=== PATIENT | male | born 1990 | race American Indian/Alaskan Native ===

== ENCOUNTER 2016-11-23 11:46 | Emergency (ER) | payer OTHER ==
--- NOTE | 2016-11-23 12:48 | XRay Report ---
ROUTINE CHEST, TWO VIEWS: HISTORY: Hypertension. The trachea, heart, mediastinal contour, lung park and bony thorax are unremarkable. IMPRESSION: Unremarkable chest x-ray.
[2016-11-23 13:00] LABS: Basophils % (Auto) 0.5 % (0.0-1.8); Eosinophils % (Auto) 0.8 % (0.0-4.3); Hematocrit 46.2 % (35.5-45.6); Hemoglobin 15.7 gm/dl (11.8-15.2); Mean Corpuscular HGB Conc 34 % (32-34); Mean Corpuscular Hemoglobin 29 pg (28-32); Mean Corpuscular Volume 85 fl (84-94); Platelet Count 262 K/mm3 (140-440); Red Blood Count 5.43 M/mm3 (3.65-5.03); White Blood Count 7.4 K/mm3 (4.5-11.0)
[2016-11-23 13:05] LABS: Anion Gap 16 mmol/L; BUN/Creatinine Ratio 8.75; Blood Urea Nitrogen 7 mg/dL (9-20); Calcium 9.1 mg/dL (8.4-10.2); Carbon Dioxide 27 mmol/L (22-30); Chloride 96.8 mmol/L (98-107); Glucose 93 mg/dL (75-100); Potassium 3.4 mmol/L (3.6-5.0); Sodium 136 mmol/L (137-145)
[2016-11-23] MEDS ORDERED: APRESOLINE IV ONE ×2 (14:43→15:41)
--- NOTE | 2016-11-23 14:49 | Emergency Department Report ---
ED General Adult HPI - General Chief complaint: Eye Problems Stated complaint: RIGHT EYE PAIN Time Seen by Provider: 11/23/16 14:27 Source: patient Mode of arrival: Ambulatory Limitations: No Limitations - History of Present Illness Initial comments: Patient presents to the emergency department because of redness and itching of his right eye. He states he "hasn't been to a doctor in a minute". He presented with incidental and severe hypertension. He denies any dyspnea or chest pain. He also denies dyspnea on exertion or any orthopnea. He said no no headache and no neurological change. He's had no change in his vision. -: days(s) Location: right (conjunctiva) Radiation: non-radiation Quality: burning Consistency: intermittent Worsens with: none Associated Symptoms: denies other symptoms - Related Data Previous Rx's Medication Instructions Recorded Last Taken Type Lisinopril/Hydrochlorothiazide 1 each PO QDAY #30 tablet 11/23/16 Unknown Rx [Zestoretic 20-12.5 mg] Sulfacetamide Sod 10% [Bleph 10] 2 drops OD 4XD #1 bottle 11/23/16 Unknown Rx hydrALAZINE [Apresoline TAB] 25 mg PO BID #60 tab 11/23/16 Unknown Rx Allergies Allergy/AdvReac Type Severity Reaction Status Date / Time No Known Allergies Allergy Unverified 11/23/16 12:01 ED Review of Systems ROS: Stated complaint: RIGHT EYE PAIN Other details as noted in HPI Constitutional: denies: chills, fever Eyes: as per HPI, other (right eye redness). denies: eye pain, eye discharge, vision change ENT: denies: ear pain, throat pain Respiratory: denies: cough, shortness of breath, wheezing Cardiovascular: denies: chest pain, palpitations Endocrine: no symptoms reported Gastrointestinal: denies: abdominal pain, nausea, diarrhea Genitourinary: denies: urgency, dysuria Musculoskeletal: denies: back pain, joint swelling, arthralgia Skin: denies: rash, lesions Neurological: denies: headache, weakness, paresthesias Psychiatric: denies: anxiety, depression Hematological/Lymphatic: denies: easy bleeding, easy bruising ED Past Medical Hx - Past Medical History Hx Hypertension: No - Surgical History Past Surgical History?: No - Social History Smoking Status: Never Smoker Substance Use Type: None - Medications Home Medications: Home Medications Medication Instructions Recorded Confirmed Last Taken Type Lisinopril/Hydrochlorothiazide 1 each PO QDAY #30 tablet 11/23/16 Unknown Rx [Zestoretic 20-12.5 mg] Sulfacetamide Sod 10% [Bleph 10] 2 drops OD 4XD #1 bottle 11/23/16 Unknown Rx hydrALAZINE [Apresoline TAB] 25 mg PO BID #60 tab 11/23/16 Unknown Rx ED Physical Exam - General Limitations: No Limitations General appearance: alert, in no apparent distress - Head Head exam: Present: atraumatic, normocephalic - Eye Eye exam: Present: normal appearance, PERRL, EOMI, scleral icterus, conjunctival injection - ENT ENT exam: Present: normal exam, mucous membranes moist - Neck Neck exam: Present: normal inspection - Respiratory Respiratory exam: Present: normal lung sounds bilaterally. Absent: respiratory distress - Cardiovascular Cardiovascular Exam: Present: regular rate, normal rhythm. Absent: systolic murmur, diastolic murmur, rubs, gallop - GI/Abdominal GI/Abdominal exam: Present: soft, normal bowel sounds. Absent: distended, tenderness, guarding, rebound, rigid - Rectal Rectal exam: Present: deferred - Extremities Exam Extremities exam: Present: normal inspection - Back Exam Back exam: Present: normal inspection - Neurological Exam Neurological exam: Present: alert, oriented X3, CN II-XII intact. Absent: motor sensory deficit - Psychiatric Psychiatric exam: Present: normal affect, normal mood - Skin Skin exam: Present: warm, dry, intact, normal color. Absent: rash ED Course Vital Signs 11/23/16 11/23/16 11/23/16 12:01 14:42 15:07 Temperature 98.7 F 98.4 F Pulse Rate 86 63 63 Respiratory 18 20 Rate Blood Pressure 192/140 200/138 Blood Pressure 194/137 [Left] O2 Sat by Pulse 100 100 Oximetry ED Medical Decision Making - Lab Data Result diagrams: 11/23/16 12:34 11/23/16 12:34 Laboratory Results - last 24 hr 11/23/16 11/23/16 12:34 12:34 WBC 7.4 RBC 5.43 H Hgb 15.7 H Hct 46.2 H MCV 85 MCH 29 MCHC 34 RDW 13.0 L Plt Count 262 Lymph % (Auto) 23.1 Hood % (Auto) 7.5 H Eos % (Auto) 0.8 Baso % (Auto) 0.5 Lymph # 1.7 Hood # 0.6 Eos # 0.1 Baso # 0.0 Seg Neutrophils % 68.1 Seg Neutrophils # 5.1 Sodium 136 L Potassium 3.4 L Chloride 96.8 L Carbon Dioxide 27 Anion Gap 16 BUN 7 L Creatinine 0.8 Estimated GFR > 60 BUN/Creatinine Ratio 8.75 Glucose 93 Calcium 9.1 - EKG Data -: EKG Interpreted by Me EKG shows normal: sinus rhythm, intervals, QRS complexes, ST-T waves Rate: normal - EKG Data Interpretation: other (Left axis deviation and voltage criteria for LVH) Critical care attestation.: If time is entered above; I have spent that time in minutes in the direct care of this critically ill patient, excluding procedure time. ED Disposition Clinical Impression: Uncontrolled hypertension Conjunctivitis, right eye Qualifiers: Conjunctivitis type: unspecified Qualified Code(s): H10.9 - Unspecified conjunctivitis Disposition: DISCHARGED TO HOME OR SELFCARE Is pt being admited?: No Does the pt Need Aspirin: No Condition: Stable Instructions: Hypertension (ED), Conjunctivitis (ED) Additional Instructions: Management of your high blood pressure is essential. Rx as directed. Follow- up is critical. Prescription given for your pinkeye as well. Return any acute change or problem. Prescriptions: hydrALAZINE [Apresoline TAB] 25 mg PO BID #60 tab Lisinopril/Hydrochlorothiazide [Zestoretic 20-12.5 mg] 1 each PO QDAY #30 tablet Sulfacetamide Sod 10% [Bleph 10] 2 drops OD 4XD #1 bottle Referrals: PRIMARY CARE, [Primary Care Provider] - 3-5 Days Time of Disposition: 16:00
[2016-11-23] MEDS ORDERED: K-DUR PO ONE (15:33)
[2016-11-23] MEDS ORDERED: NORMODYNE IV ONE ×2 (16:40→18:52)
[2016-11-23] MEDS ORDERED: ZOFRAN IV ONE ×2 (17:15→19:36)
--- NOTE | 2016-11-23 19:38 | Emergency Department Report ---
Blank Doc - Documentation Documentation: I was asked to see this patient as the patient continued to have hypertension despite the IV blood pressure medication given. The patient is originally here for conjunctivitis post found to have hypertensive urgency. Patient was given another dose of blood pressure medication that did not appear to provide immediate relief. The patient began having nausea and vomiting. He was given some IV Zofran. We continued to monitor him in the emergency department. The blood pressure has started to improve with the patient still continues to complain of nausea and vomiting and now is complaining of a headache. For this reason a CT of the head without contrast will be ordered due to his significant hypertension of issues prior to this. He has been given more Zofran and we will continue to monitor him in the emergency department.
--- NOTE | 2016-11-23 20:23 | Cat Scan Report ---
FINAL REPORT PROCEDURE: CT HEAD/BRAIN WO CON TECHNIQUE: Computerized tomography of the head was performed without contrast material. HISTORY: FLOYD with hypertension COMPARISON: No prior studies are available for comparison. FINDINGS: No CT evidence of intracranial mass, hemorrhage, acute territorial infarction, or hydrocephalus. The intracranial arteries are symmetric in density. Calvarium is intact. There is bilateral ethmoid sinus mucosal thickening. IMPRESSION: Bilateral ethmoid sinus mucosal thickening. No CT evidence of acute intracranial abnormality
[2016-11-23] MEDS ORDERED: CATAPRES PO ONE (20:38)
[2016-11-23] MEDS ORDERED: BENADRYL IV ONE (20:38)
[2016-11-23] MEDS ORDERED: REGLAN IV ONE (20:38)
--- NOTE | 2016-11-23 22:14 | Emergency Department Report ---
Blank Doc - Documentation Documentation: Patient signout to me by Dr. Galvez since patient attained to have uncontrolled hypertension despite IV medication. Patient complained of headache which is now 3/10 in intensity did not require any additional pain medications. Nausea and vomiting improved with treatment prior to my evaluation. I treated patient with clonidine 0.1 mg which he tolerated had improvement in his blood pressure. BP 140/96. I will discharge patient home with the medications prescribed by Dr. Stone which includes hydralazine, lisinopril/hydrochlorothiazide, and antibiotics eyedrops. CT head showed ethmoid sinus thickening. Patient will be discharged to follow-up with the PMD as outpatient
[2016-11-23 22:31] VITALS: BP 141/91
== END 2016-11-23 22:30 | disposition home or self-care (01) ==
LOC: ED 11:46
DX: H10.9 Unspecified conjunctivitis (principal); R03.0 Elevated blood-pressure reading, without diagnosis of hypertension
CPT/HCPCS: 36415; 70450; 71020; 80048; 85025; 93005; 93010; 96374; 96375; 96376; 99284; J0360; J2405; J1200; J2765

== ENCOUNTER 2017-07-04 19:10 | Inpatient (IN) | payer OTHER ==
[2017-07-04] MEDS ORDERED: CATAPRES ONE (19:54)
[2017-07-04] MEDS ORDERED: CATAPRES PO ONE (19:57)
[2017-07-04] MEDS ORDERED: MORPHINE IV ONE (20:53)
[2017-07-04] MEDS ORDERED: K-DUR PO ONE (20:54)
[2017-07-04] MEDS ORDERED: ZOFRAN IV ONE (20:54)
[2017-07-04 20:59] LABS: Basophils % (Auto) 0.9 % (0.0-1.8); Eosinophils % (Auto) 0.9 % (0.0-4.3); Hemoglobin 13.6 gm/dl (11.8-15.2); Mean Corpuscular HGB Conc 36 % (32-34); Mean Corpuscular Hemoglobin 30 pg (28-32); Mean Corpuscular Volume 83 fl (84-94); Platelet Count 310 K/mm3 (140-440); Red Blood Count 4.57 M/mm3 (3.65-5.03); Red Cell Distribution Width 13.3 % (13.2-15.2); White Blood Count 4.4 K/mm3 (4.5-11.0)
--- NOTE | 2017-07-04 20:59 | Emergency Department Report ---
ED Chest Pain HPI - General Chief Complaint: Chest Pain Stated Complaint: CHEST PAIN Time Seen by Provider: 07/04/17 20:11 Source: patient Mode of arrival: Ambulatory Limitations: No Limitations - History of Present Illness Initial Comments: 26-year-old male with past medical history hypertension presents to the hospital with chest pain and headaches intermittent times at least one month. Patient's chest pain is in the center of his chest, intermittent tightness rated 8/10 in intensity. Currently no chest pain reported. No aggravating or alleviating symptoms. Denies associated symptoms with pain including shortness of breath, nausea, vomiting, diaphoresis, Tenderness, or edema. Patient complains of posterior headache radiating to the neck. This pain is also intermittent. Currently the process in intensity. Denies associated symptoms including nausea, vomiting, blurred vision, focal weakness, or focal numbness. Patient was here in November for eye-related complaints and found to be hypertensive at that time. Patient was prescribed Lisinopril/ hydrochlorothiazide 20-12.5 mg and hydralazine 25 mg after receiving several IV medications in the ED for blood pressure control. Patient never filled his medications or followed up with the primary care doctor for further blood pressure management. Positive family history of hypertension reported with unknown cardiac history. Patient does not smoke cigarettes. Severity scale (0 -10): 8 - Related Data Home Medications Medication Instructions Recorded Confirmed Last Taken No Known Home Medications [No 07/04/17 07/04/17 Unknown Reported Home Medications] Allergies Allergy/AdvReac Type Severity Reaction Status Date / Time No Known Allergies Allergy Unverified 11/23/16 12:01 Heart Score - HEART Score History: Slightly suspicious EKG: Non-specific Age: < 45 Risk factors: 1-2 risk factors Troponin: < normal limit HEART Score: 2 ED Review of Systems ROS: Stated complaint: CHEST PAIN Other details as noted in HPI Comment: All other systems reviewed and negative Other: Constitutional: No fevers chills or weight loss Eyes: No eye pain visual changes or discharge ENT: No ear pain or throat pain Neck: Denies pain Respiratory: Denies cough wheezing shortness of breath at rest shortness of breath or exertion, orthopnea or PND Cardiovascular: Denies chest pain, palpitations, syncope Endocrine: Denies excessive sweating, intolerance to cold, increased thirst GI: Denies abdominal pain, nausea, vomiting, diarrhea, constipation, melena hematochezia : Denies dysuria, urinary frequency, or urgency Musculoskeletal: Denies back pain, joint swelling Skin: Denies rash, lesions, erythema Neurologic: Denies headache, numbness, weakness Psychiatric: Denies suicidal ideation, hallucinations Hematological/lymphatic: Denies easy bruising, lymphadenopathy ED Past Medical Hx - Past Medical History Previous Medical History?: No Hx Hypertension: No - Surgical History Past Surgical History?: No - Social History Smoking Status: Never Smoker - Medications Home Medications: Home Medications Medication Instructions Recorded Confirmed Last Taken Type No Known Home Medications [No 07/04/17 07/04/17 Unknown History Reported Home Medications] ED Physical Exam - General Limitations: No Limitations - Other Other exam information: General: No limitations, patient is alert in no acute distress Head exam: Atraumatic, normocephalic Eyes exam: Normal appearance, pupils equal reactive to light, extraocular movements intact ENT: Moist mucous membrane, normal oropharynx Neck exam: Normal inspection, full range of motion, no meningismus nontender Respiratory exam: Clear to auscultation bilateral, no wheezes, rales, crackles Cardiovascular: Normal rate and rhythm, normal heart sounds Abdomen: Soft, nondistended, and nontender, with normal bowel sounds, no rebound, or guarding Extremity: Full range of motion normal inspection no deformity, no calf tenderness or edema Back: Normal Inspection, full range of motion, no tenderness Neurologic: Alert, oriented x3, cranial nerves intact, no motor or sensory deficit Psychiatric: normal affect, normal mood Skin: Warm, dry, intact ED Course Vital Signs 07/04/17 07/04/17 07/04/17 19:31 19:36 19:58 Temperature 98.8 F 98.8 F Pulse Rate 118 H 120 H 115 H Respiratory 18 17 Rate Blood Pressure 224/157 224/157 198/142 Blood Pressure [Left] O2 Sat by Pulse 100 99 Oximetry 07/04/17 07/04/17 20:06 20:15 Temperature 98.5 F Pulse Rate 100 H 96 H Respiratory 22 21 Rate Blood Pressure 181/128 Blood Pressure 190/137 [Left] O2 Sat by Pulse 100 97 Oximetry - Reevaluation(s) Reevaluation #1: 07/04/17 20:59 Patient received clonidine prior to my evaluation RAY score - Ray Score Age > 65: (0) No Aspirin use within the Past 7 Days: (0) No 3 or more CAD Risk Factors: (0) No 2 or more Angina events in past 24 hrs: (1) Yes Known CAD with more than 50% Stenosis: (0) No Elevated Cardiac Markers: (0) No ST Deviation Greater than 0.5mm: (0) No RAY Score: 1 ED Medical Decision Making - Lab Data Result diagrams: 07/04/17 20:37 07/04/17 20:37 Lab Results 07/04/17 07/04/17 07/04/17 Range/Units 20:37 20:37 20:37 WBC 4.4 L (4.5-11.0) K/mm3 RBC 4.57 (3.65-5.03) M/mm3 Hgb 13.6 (11.8-15.2) gm/dl Hct 38.0 (35.5-45.6) % MCV 83 L (84-94) fl MCH 30 (28-32) pg MCHC 36 H (32-34) % RDW 13.3 (13.2-15.2) % Plt Count 310 (140-440) K/mm3 Lymph % (Auto) 26.3 (13.4-35.0) % Bureau % (Auto) 9.6 H (0.0-7.3) % Eos % (Auto) 0.9 (0.0-4.3) % Baso % (Auto) 0.9 (0.0-1.8) % Lymph # 1.2 (1.2-5.4) K/mm3 Bureau # 0.4 (0.0-0.8) K/mm3 Eos # 0.0 (0.0-0.4) K/mm3 Baso # 0.0 (0.0-0.1) K/mm3 Seg Neutrophils % 62.3 (40.0-70.0) % Seg Neutrophils # 2.7 (1.8-7.7) K/mm3 Sodium 137 (137-145) mmol/L Potassium 3.1 L (3.6-5.0) mmol/L Chloride 95.4 L (98-107) mmol/L Carbon Dioxide 29 (22-30) mmol/L Anion Gap 16 mmol/L BUN 7 L (9-20) mg/dL Creatinine 1.0 (0.8-1.5) mg/dL Estimated GFR > 60 ml/min BUN/Creatinine Ratio 7 % Glucose 109 H (75-100) mg/dL Calcium 9.1 (8.4-10.2) mg/dL Troponin T < 0.010 (0.00-0.029) ng/mL Triglycerides 46 (2-149) mg/dL Cholesterol 169 (50-199) mg/dL LDL Cholesterol Direct 105 (50-130) mg/dL HDL Cholesterol 55 (40-59) mg/dL Cholesterol/HDL Ratio 3.07 % - EKG Data -: EKG Interpreted by Me (sinus 104) EKG shows normal: sinus rhythm (sinus 104), axis (QRS -40), QRS complexes ( duration 85), ST-T waves (mild anterior elevation probably secondary LVH) - EKG Data When compared to previous EKG there are: no significant change (11/2016) - Radiology Data Radiology results: report reviewed, image reviewed (cxr: naf) CT head: Probable incidental thornwaldt cyst of th enasalphrynx measuring 17mm. - Medical Decision Making Meds provided ED: Clonidine 0.2 mg, morphine 4 mg, Zofran 4 mg IV. Aspirin 325, potassium 40 mEq by mouth Blood pressure is trending downward No signs of ST elevation LA or elevated cardiac enzymes narrow mediastinum on chest x-ray. CT head without acute finding Patient be admitted to the hospital for further cardiac evaluation - Differential Diagnosis LA, unstable angina, hypertensive emergency, dissection, PE, costochondriti Critical Care Time: No Critical care attestation.: If time is entered above; I have spent that time in minutes in the direct care of this critically ill patient, excluding procedure time. ED Disposition Clinical Impression: Chest pain, Intermittent headache, Uncontrolled hypertension, Hypokalemia, Noncompliance with medication regimen Disposition: OP ADMIT IP TO THIS HOSP Is pt being admited?: Yes Does the pt Need Aspirin: Yes Condition: Stable Time of Disposition: 22:31 [facility]
[2017-07-04] MEDS ORDERED: MORPHINE ONE (21:07)
[2017-07-04 21:19] LABS: Anion Gap 16 mmol/L; BUN/Creatinine Ratio 7; Blood Urea Nitrogen 7 mg/dL (9-20); Calcium 9.1 mg/dL (8.4-10.2); Carbon Dioxide 29 mmol/L (22-30); Chloride 95.4 mmol/L (98-107); Glucose 109 mg/dL (75-100); Potassium 3.1 mmol/L (3.6-5.0); Sodium 137 mmol/L (137-145)
--- NOTE | 2017-07-04 22:06 | Cat Scan Report ---
FINAL REPORT PROCEDURE: CT HEAD/BRAIN WO CON TECHNIQUE: Computerized tomography of the head was performed without contrast material. HISTORY: headache, htn COMPARISON: No prior studies are available for comparison. FINDINGS: Skull and scalp: Normal. Paranasal sinuses: Normal. Ventricles and subarachnoid spaces: There is mild central and cortical atrophy. There is no hydrocephalus or asymmetry per. Cerebrum: No evidence of hemorrhage, acute infarction or mass . Cerebellum and brainstem: No evidence of hemorrhage, acute infarction or mass. Vasculature: Normal. Comments: Probable incidental Thornwaldt cyst of the nasopharynx measuring 17 millimeters in diameter. If indicated, direct visual inspection may be helpful. IMPRESSION: There is no acute intracranial abnormality.
[2017-07-04] MEDS ORDERED: ASPIRIN PO ONE (22:29)
--- NOTE | 2017-07-05 00:31 | History and Physical Report ---
History of Present Illness Date of examination: 07/05/17 Date of admission: 07/04/17 22:33 Chief complaint: Headache Chest tightness History of present illness: Patient is 26-year-old with history of hypertension, medical non compliance. He has not taken any of his antihypertensives medication in about 7 months. He presented a chief complaint of headache, chest pain on and off for 1 month. Headache is in the posterior part of head, throbbing kind of headache, with no radiation. Chest pain is like a tightness, middle of chest, intensity of 8 out of 10 with no radiation. Chest pain not related to meals or exertion. He denies any shortness of breath. Symptoms are getting worse therefore came to ED for evaluation. Of note patient came to Ed in november this year( 7 months ago ) was diagnosed with hypertension and given multiple prescriptions but he did not fill prescription or follow-up with a physician as recommended. In ED initial blood pressure 224/157. He was given clonidine and blood pressure improved and he is being admitted to control his blood pressure. Past History Past Medical History: hypertension Past Surgical History: No surgical history Social history: single, full code. denies: smoking, alcohol abuse Family history: diabetes, hypertension, stroke Medications and Allergies Allergies Allergy/AdvReac Type Severity Reaction Status Date / Time No Known Allergies Allergy Unverified 11/23/16 12:01 Home Medications Medication Instructions Recorded Confirmed Last Taken Type No Known Home Medications [No 07/04/17 07/04/17 Unknown History Reported Home Medications] Review of Systems All systems: negative (No fever, no cough, no abd pain. all other systems reviewed and are negative) Exam - Physical Exam Narrative exam: Gen Appearance: Not in acute distress, HEENT: normocephalic, atraumatic Neck: supple, no JVD Lungs: Clear to auscultation bilaterally, no rales, no wheezing, Heart: S1 and S2 regular, no murmurs,no rubs or gallop, Abdomen: Soft , non tender, non distended, normal bowel sounds Extremity: No edema, no clubbing or cyanosis, Neuro : Awake,alert, oriented x 3, normal speech, moves all extremities Psych: Normal mood - Constitutional Vitals: Temp Pulse Resp BP Pulse Ox 98.5 F 72 12 131/88 99 07/04/17 20:06 07/05/17 00:00 07/05/17 00:00 07/05/17 00:00 07/05/17 00:00 Results - Labs CBC & Chem 7: 07/04/17 20:37 07/05/17 08:46 Assessment and Plan Hypertensive emergency. Admit to telemetry. Initial BP was 224/157. Now much improved after Clonidine. Will start Norvasc 5mg po daily in morning Chest pain, likely due to elevated BP. Chest pain is now resolved. May do stress test before discharge. Headache due to elevated BP. CT head unremarkable. Hypokalemia. Potassium given. Repeat BMP in am Medical noncompliance. I counseled him on importance of taking his medications and to follow up with Physician on discharge. DVT prophylaxis with heparin subcut.. Full code status
[2017-07-05] MEDS ORDERED: TYLENOL PO PRN (00:45)
[2017-07-05] MEDS ORDERED: DULCOLAX PR PRN (00:45)
[2017-07-05] MEDS ORDERED: PROVENTIL IH PRN (00:45)
[2017-07-05] MEDS ORDERED: NORCO 5/325 PO PRN (00:45)
[2017-07-05] MEDS ORDERED: ZOFRAN IV PRN (00:45)
[2017-07-05] MEDS ORDERED: MILK OF MAGNESIA PO PRN (00:45)
--- NOTE | 2017-07-05 07:24 | XRay Report ---
ROUTINE CHEST, TWO VIEWS: HISTORY: Chest pain, hypertension. The trachea, heart, mediastinal contour, lung park and bony thorax are unremarkable. IMPRESSION: Unremarkable chest x-ray. No change since 11/23/16.
[2017-07-05 09:27] LABS: Anion Gap 15 mmol/L; BUN/Creatinine Ratio 8; Blood Urea Nitrogen 10 mg/dL (9-20); Calcium 9.1 mg/dL (8.4-10.2); Carbon Dioxide 29 mmol/L (22-30); Chloride 97.8 mmol/L (98-107); Glucose 93 mg/dL (75-100); Potassium 3.8 mmol/L (3.6-5.0); Sodium 138 mmol/L (137-145)
[2017-07-05] MEDS ORDERED: NORVASC PO SCH (10:00)
[2017-07-05] MEDS: ECOTRIN PO SCH (11:56)
[2017-07-05] MEDS: HEPARIN SUB-Q SCH ×2 (15:24→22:33)
[2017-07-05] MEDS ORDERED: APRESOLINE IV ONE (20:52)
[2017-07-06] MEDS ORDERED: APRESOLINE IV PRN (01:11)
[2017-07-06] MEDS: HEPARIN SUB-Q SCH ×2 (06:25→14:12)
[2017-07-06] MEDS ORDERED: LEXISCAN IV ONE ×2 (08:27→08:44)
[2017-07-06] MEDS ORDERED: NORVASC PO SCH (10:30)
[2017-07-06] MEDS ORDERED: NORMODYNE PO SCH (10:30)
[2017-07-06 10:43] VITALS: BP 164/116
--- NOTE | 2017-07-06 11:04 | Progress Note ---
Assessment and Plan Assessment and plan: Accelerated Hypertension. Increase Norvasc and add Labetalol Chest pain. Stress test pending. Strong family hx with uncle [place] in 40s Headache due to elevated BP. Resolved Hypokalemia. Replete Potassium as needed. Repeat BMP in am Medical noncompliance. Pt. counseled DVT prophylaxis with heparin. Full code status History Interval history: no new issues overnight. Hospitalist Physical - Constitutional Vitals: Temp Pulse Resp BP Pulse Ox 98.1 F 107 H 20 164/116 97 07/06/17 10:39 07/06/17 10:39 07/06/17 10:39 07/06/17 10:39 07/06/17 10:39 General appearance: Present: no acute distress, well-nourished - EENT Eyes: Present: PERRL, EOM intact ENT: hearing intact, clear oral mucosa, dentition normal - Neck Neck: Present: supple, normal ROM - Respiratory Respiratory effort: normal Respiratory: bilateral: CTA - Cardiovascular Rhythm: regular Heart Sounds: Present: S1 & S2. Absent: gallop, rub - Extremities Extremities: no ischemia, No edema, Full ROM - Abdominal General gastrointestinal: soft, non-tender, non-distended, normal bowel sounds - Integumentary Integumentary: Present: clear, warm, dry - Neurologic Neurologic: CNII-XII intact, moves all extremities Results - Labs CBC & Chem 7: 07/04/17 20:37 07/05/17 08:46 Labs: Laboratory Last Values WBC 4.4 K/mm3 (4.5-11.0) L 07/04/17 20:37 RBC 4.57 M/mm3 (3.65-5.03) 07/04/17 20:37 Hgb 13.6 gm/dl (11.8-15.2) 07/04/17 20:37 Hct 38.0 % (35.5-45.6) 07/04/17 20:37 MCV 83 fl (84-94) L 07/04/17 20:37 MCH 30 pg (28-32) 07/04/17 20:37 MCHC 36 % (32-34) H 07/04/17 20:37 RDW 13.3 % (13.2-15.2) 07/04/17 20:37 Plt Count 310 K/mm3 (140-440) 07/04/17 20:37 Lymph % (Auto) 26.3 % (13.4-35.0) 07/04/17 20:37 Thayer % (Auto) 9.6 % (0.0-7.3) H 07/04/17 20:37 Eos % (Auto) 0.9 % (0.0-4.3) 07/04/17 20:37 Baso % (Auto) 0.9 % (0.0-1.8) 07/04/17 20:37 Lymph # 1.2 K/mm3 (1.2-5.4) 07/04/17 20:37 Thayer # 0.4 K/mm3 (0.0-0.8) 07/04/17 20:37 Eos # 0.0 K/mm3 (0.0-0.4) 07/04/17 20:37 Baso # 0.0 K/mm3 (0.0-0.1) 07/04/17 20:37 Seg Neutrophils % 62.3 % (40.0-70.0) 07/04/17 20:37 Seg Neutrophils # 2.7 K/mm3 (1.8-7.7) 07/04/17 20:37 Sodium 138 mmol/L (137-145) 07/05/17 08:46 Potassium 3.8 mmol/L (3.6-5.0) D 07/05/17 08:46 Chloride 97.8 mmol/L (98-107) L 07/05/17 08:46 Carbon Dioxide 29 mmol/L (22-30) 07/05/17 08:46 Anion Gap 15 mmol/L 07/05/17 08:46 BUN 10 mg/dL (9-20) 07/05/17 08:46 Creatinine 1.3 mg/dL (0.8-1.5) 07/05/17 08:46 Estimated GFR > 60 ml/min 07/05/17 08:46 BUN/Creatinine Ratio 8 % 07/05/17 08:46 Glucose 93 mg/dL (75-100) 07/05/17 08:46 Calcium 9.1 mg/dL (8.4-10.2) 07/05/17 08:46 Troponin T < 0.010 ng/mL (0.00-0.029) 07/05/17 01:30 Triglycerides 46 mg/dL (2-149) 07/04/17 20:37 Cholesterol 169 mg/dL (50-199) 07/04/17 20:37 LDL Cholesterol Direct 105 mg/dL (50-130) 07/04/17 20:37 HDL Cholesterol 55 mg/dL (40-59) 07/04/17 20:37 Cholesterol/HDL Ratio 3.07 % 07/04/17 20:37
[2017-07-06] MEDS: ECOTRIN PO SCH (11:11)
--- NOTE | 2017-07-06 17:30 | Discharge Summary ---
<AFIA ROBLES - Last Filed: 07/06/17 19:41> Providers - Providers Date of Admission: 07/04/17 22:33 Date of discharge: 07/06/17 Attending physician: MEETA AGOSTO Primary care physician: REYNALDO GARCIA MD Hospitalization Condition: Good Hospital course: Patient is 26-year-old with history of hypertension, medical non compliance. He has not taken any of his antihypertensives medication in about 7 months. He presented a chief complaint of headache, chest pain on and off for 1 month. Patient was diagnosed with chest pain, Accelerated Hypertension, hypokalemia and Headache. Patient presented with atypical chest pain, ACS was ruled out, stress test normal MPI, negative cardiac enzymes, ECGs shows normal sinus rythm , CXR WNL. Patient chest pain probably from uncontrolled hypertension. He was treated with supplemental potassium and antihypertensive medications. He D/C with increased dose of Norvasc and Labetalol. He was counseled about non- compliance and he agreed that he would start taking his meds faithfully. Patient is clinically improved and no chest pain at present time. Patient advised to follow-up with her primary care provider. Discharge Diagnosed Chest Pain due to uncontrolled hypertension Accelerated Hypertension. Headache due to elevated BP. Hypokalemia. Medical noncompliance. Disposition: TO HOME OR SELFCARE Core Measure Documentation - Palliative Care Palliative Care/ Comfort Measures: Not Applicable - Core Measures Any of the following diagnoses?: none Exam - Constitutional Vitals: Temp Pulse Resp BP Pulse Ox 98.1 F 107 H 20 164/116 97 07/06/17 10:39 07/06/17 10:39 07/06/17 10:39 07/06/17 10:39 07/06/17 10:39 Plan Activity: no restrictions Diet: low cholesterol, low salt Follow up with: REYNALDO GARCIA MD [Primary Care Provider] - 7 Days <MEETA AGOSTO - Last Filed: 07/08/17 13:25> Providers - Providers Date of Admission: 07/04/17 22:33 Attending physician: MEETA AGOSTO Primary care physician: REYNALDO GARCIA MD Hospitalization Hospital course: I saw and evaluated the patient. I agree with the findings and the plan of care as documented in the Nurse Practitioner's~note, with the following corrections and additions. Exam - Constitutional Vitals: Temp Pulse Resp BP Pulse Ox 98.1 F 107 H 20 164/116 97 07/06/17 10:39 07/06/17 10:39 07/06/17 10:39 07/06/17 10:39 07/06/17 10:39
--- NOTE | 2017-07-06 23:54 | Treadmill Report ---
STRESS TEST INDICATION FOR THE PROCEDURE: Abnormal EKG and chest pain. FINDINGS: There is no scintigraphic evidence of myocardial ischemia. The left ventricle is normal in size and systolic function. The left ventricular ejection fraction is measured at 70%. Normal wall motion and wall thickening is noted on gated imaging. CONCLUSION: Normal perfusion scan. JOB# [id number] KEIKO/JANAE
== END 2017-07-06 17:55 | disposition home or self-care (01) | DRG 305 ==
LOC: ED 19:10 → 4A 22:33
PROVIDERS: ADMIT Internal Medicine; ATTEND Hospitalist
DX: I10 Essential (primary) hypertension (principal); R51 Headache; Z91.14 Patient's other noncompliance with medication regimen; R07.9 Chest pain, unspecified; E87.6 Hypokalemia; Z71.89 Other specified counseling; Z83.3 Family history of diabetes mellitus; Z82.49 Family history of ischemic heart disease and other diseases of the circulatory system; Z82.3 Family history of stroke
CPT/HCPCS: 36415; 70450; 71020; 78452; 80048; 80061; 84484; 85025; 93005; 93010; 93017; 96374; 96375; A9502; J0360; J1644; J2270; J2405; J2785

== ENCOUNTER 2018-06-21 12:44 | Inpatient (IN) | payer OTHER ==
[2018-06-21] MEDS ORDERED: ASPIRIN PO ONE (13:03)
[2018-06-21 13:21] LABS: Basophils # (Auto) 0.1 K/mm3 (0.0-0.1); Basophils % (Auto) 0.7 % (0.0-1.8); Eosinophils % (Auto) 0.6 % (0.0-4.3); Lymphocytes # (Auto) 1.8 K/mm3 (1.2-5.4); Lymphocytes % (Auto) 23.2 % (13.4-35.0); Mean Corpuscular HGB Conc 36 % (32-34); Mean Corpuscular Hemoglobin 30 pg (28-32); Mean Corpuscular Volume 82 fl (84-94); Monocytes # (Auto) 0.4 K/mm3 (0.0-0.8); Monocytes % (Auto) 5.3 % (0.0-7.3); Platelet Count 252 K/mm3 (140-440); Red Blood Count 5.57 M/mm3 (3.65-5.03); Red Cell Distribution Width 12.8 % (13.2-15.2)
[2018-06-21 13:24] LABS: Hematocrit 45.7 % (35.5-45.6); Hemoglobin 16.4 gm/dl (11.8-15.2)
[2018-06-21 13:39] LABS: BUN/Creatinine Ratio 12; Blood Urea Nitrogen 17 mg/dL (9-20); Calcium 9.3 mg/dL (8.4-10.2); Hemolysis Index 7
[2018-06-21] MEDS ORDERED: TYLENOL PO ONE (13:46)
[2018-06-21] MEDS ORDERED: NORMODYNE IV ONE (13:47)
[2018-06-21] MEDS ORDERED: KCL 10MEQ/100ML 10 MEQ/100 ML BAG IV ONE (13:58)
[2018-06-21] MEDS ORDERED: K-DUR PO ONE (13:58)
--- NOTE | 2018-06-21 14:50 | Cat Scan Report ---
CT HEAD WITHOUT CONTRAST: HISTORY: Headache, dizziness. TECHNIQUE: Sequential 2.5mm CT images. COMPARISON: 07/04/17. FINDINGS: Cerebral Parenchyma: Within normal limits. Cerebellum: Within normal limits. Brainstem: Within normal limits. Ventricles: Normal. Sella: Normal. Extra-axial spaces: Normal. Basal Cisterns: Normal. Intracranial Hemorrhage: None. Midline Shift: None. Calvarium: Normal. Sinuses: Normal. Mastoid Air Cells: Normal. Visualized Orbits: Normal. IMPRESSION: Cranial CT scan within normal limits.
[2018-06-21 14:51] LABS: Alanine Aminotransferase 18 units/L (7-56); Albumin 4.1 g/dL (3.9-5); BUN/Creatinine Ratio 12; Blood Urea Nitrogen 17 mg/dL (9-20); Calcium 9.4 mg/dL (8.4-10.2); Hemolysis Index 8
--- NOTE | 2018-06-21 14:52 | Cat Scan Report ---
CT ABDOMEN PELVIS WITHOUT CONTRAST: HISTORY: Abdominal pain, hematuria. COMPARISON: none. TECHNIQUE: Helical CT in 1.25mm intervals without IV contrast. Sagittal and coronal reconstructions. FINDINGS: Lung bases: Normal. Liver: Normal. Biliary system: Normal. Pancreas: Normal. Spleen: Normal. Kidneys/ureters/bladder: The kidneys are normal size, contour and position. A 2 cm cyst is suspected at the superior pole of the right kidney. No evidence for nephrolithiasis or hydronephrosis. The ureters and bladder are unremarkable. Normal prostate gland. Adrenal glands: Normal. Aorta: Normal. Intestines: Normal. Appendix: Normal. Ascites: None. Adenopathy: None. Musculoskeletal: Normal. IMPRESSION: Unremarkable CT scan of the abdomen and pelvis without contrast. No acute inflammatory process is identified. 2 cm right renal cyst.
[2018-06-21] MEDS ORDERED: CARDENE 50 MG in NACL 0.9% 250ML 230 ML IV SCH (15:00)
[2018-06-21] MEDS ORDERED: DELTASONE PO ONE (15:42)
[2018-06-21] MEDS ORDERED: ALDACTONE PO ONE (15:43)
--- NOTE | 2018-06-21 16:08 | Emergency Department Report ---
ED General Adult HPI - General Chief complaint: Chest Pain Stated complaint: CHEST PAIN/UTI Time Seen by Provider: 06/21/18 13:38 Source: patient Mode of arrival: Ambulatory Limitations: No Limitations - History of Present Illness Initial comments: 27-year-old male with no past medical history presents with a complaint of chest pain recently states he had onset of chest pain which began yesterday. Patient also complains of a moderate headache. Patient denies any fever or any neck stiffness. Patient states that he never knew that his blood pressure was high. Patient states that he has a father with history of heart disease. Patient states he takes no medications at all. Patient also states that he has been noticing blood clots from his penis. Patient denies any priapism. Patient states that he'll be able to urinate fine without blood and then once he completed urinating densities residual blood. Patient denies any recent actual intercourse and denies any recent instrumentation to his penis region. Denies any trauma to his penis as well. Severity scale (0 -10): 5 - Related Data Home Medications Medication Instructions Recorded Confirmed Last Taken No Known Home Medications [No 07/04/17 06/21/18 Unknown Reported Home Medications] Allergies Allergy/AdvReac Type Severity Reaction Status Date / Time No Known Allergies Allergy Verified 06/21/18 13:00 ED Review of Systems ROS: Stated complaint: CHEST PAIN/UTI Other details as noted in HPI Constitutional: denies: chills, fever Eyes: denies: eye pain, eye discharge, vision change ENT: denies: ear pain, throat pain Respiratory: denies: cough, shortness of breath, wheezing Cardiovascular: chest pain. denies: palpitations Endocrine: no symptoms reported Gastrointestinal: denies: abdominal pain, nausea, diarrhea Genitourinary: hematuria. denies: urgency, dysuria Musculoskeletal: denies: back pain, joint swelling, arthralgia Skin: denies: rash, lesions Neurological: denies: headache, weakness, paresthesias Psychiatric: denies: anxiety, depression Hematological/Lymphatic: denies: easy bleeding, easy bruising ED Past Medical Hx - Past Medical History Hx Hypertension: Yes (No dx.) - Surgical History Past Surgical History?: No - Social History Smoking Status: Never Smoker Substance Use Type: None - Medications Home Medications: Home Medications Medication Instructions Recorded Confirmed Last Taken Type No Known Home Medications [No 07/04/17 06/21/18 Unknown History Reported Home Medications] ED Physical Exam - General Limitations: No Limitations General appearance: alert, in no apparent distress - Head Head exam: Present: atraumatic, normocephalic - Eye Eye exam: Present: normal appearance - ENT ENT exam: Present: mucous membranes moist - Neck Neck exam: Present: normal inspection - Respiratory Respiratory exam: Present: normal lung sounds bilaterally. Absent: respiratory distress - Cardiovascular Cardiovascular Exam: Present: regular rate, normal rhythm. Absent: systolic murmur, diastolic murmur, rubs, gallop - GI/Abdominal GI/Abdominal exam: Present: soft, normal bowel sounds - Rectal Rectal exam: Present: deferred - exam: Present: other (dried blood with no active bleeding noted at meatus; no discharge or penile lesions). Absent: testicular tenderness, scrotal swelling - Extremities Exam Extremities exam: Present: normal inspection - Back Exam Back exam: Present: normal inspection - Neurological Exam Neurological exam: Present: alert, oriented X3 - Psychiatric Psychiatric exam: Present: normal affect, normal mood - Skin Skin exam: Present: warm, dry, intact, normal color. Absent: rash ED Course Vital Signs 06/21/18 06/21/18 06/21/18 13:00 13:30 13:46 Temperature 99 F Pulse Rate 98 H 115 H 101 H Respiratory 16 10 L 13 Rate Blood Pressure 236/178 248/178 O2 Sat by Pulse 99 100 98 Oximetry 06/21/18 06/21/18 06/21/18 14:00 14:15 14:30 Temperature Pulse Rate 96 H 91 H 86 Respiratory 13 8 L 7 L Rate Blood Pressure 242/177 248/178 226/173 O2 Sat by Pulse 99 99 97 Oximetry 06/21/18 06/21/18 06/21/18 14:43 14:49 15:00 Temperature Pulse Rate 92 H Respiratory 18 11 L Rate Blood Pressure 230/174 211/162 O2 Sat by Pulse 98 98 Oximetry 06/21/18 06/21/18 06/21/18 15:15 15:30 15:45 Temperature Pulse Rate 85 89 96 H Respiratory 13 11 L 13 Rate Blood Pressure 226/173 211/166 211/166 O2 Sat by Pulse 99 97 100 Oximetry ED Medical Decision Making - Lab Data Result diagrams: 06/21/18 13:06 10/17/18 13:06 - EKG Data Rate: tachycardia - EKG Data Interpretation: LVH - Radiology Data Radiology results: report reviewed - Medical Decision Making He shouldn't noted to have a blood pressure of 242/180 upon presentation here to the emergency department. 20 mg of labetalol IV patient's blood pressure only down trended to 236/178. With this being the case patient was initiated on a Cardene drip to further control his blood pressure. Patient to be admitted to the hospitalist service and will likely have nephrology consulted as well. No emergent findings for his hematuria at this current time. - Differential Diagnosis hypertensive urgency; hypertensive emergency; electrolyte abnormality; anem Critical Care Time: Yes Critical care time in (mins) excluding proc time.: 40 Critical care attestation.: If time is entered above; I have spent that time in minutes in the direct care of this critically ill patient, excluding procedure time. Critical care time includes time spent on physician consultation, direct bedside care, reassessment. ED Disposition Clinical Impression: Chest pain, Hypokalemia, Hematuria, Uncontrolled hypertension Disposition: OP ADMIT IP TO THIS HOSP Is pt being admited?: Yes Condition: Stable Instructions: Chest Pain (ED), Hypertension (ED) Referrals: PRIMARY CARE, [Primary Care Provider] - 3-5 Days Time of Disposition: 16:16
[2018-06-21] MEDS ORDERED: PROVENTIL IH PRN (16:23)
[2018-06-21] MEDS ORDERED: ZOFRAN IV PRN (16:23)
[2018-06-21] MEDS ORDERED: SODIUM CHLORIDE FLUSH SYRINGE 10 ML IV PRN (16:23)
[2018-06-21 16:29] LABS: Bilirubin,Urine NEG (Negative); Blood,Urine MOD (Negative); Color,Urine Yellow (Yellow); Protein,Urine >500 mg/dL (Negative); RBC,Urine > 182.0 /HPF (0.0-6.0); Urobilinogen,Urine < 2.0 mg/dL (<2.0)
[2018-06-21 16:44] LABS: Free T4 (Free Thyroxine) 1.61 ng/dL (0.76-1.46)
[2018-06-21 17:03] LABS: Amphetamine Screen,Urine PRESUMPTIVE NEGATIVE; Benzodiazepines Screen,Urine PRESUMPTIVE NEGATIVE; Cocaine Screen,Urine PRESUMPTIVE NEGATIVE; Methadone Screen,Urine PRESUMPTIVE NEGATIVE; Opiate Screen,Urine PRESUMPTIVE NEGATIVE
[2018-06-21 17:18] LABS: Cannabinoid Screen,Urine PRESUMPTIVE POSITIVE
--- NOTE | 2018-06-21 20:45 | History and Physical Report ---
History of Present Illness Date of admission: 06/21/18 16:23 Chief complaint: My blood pressure is high History of present illness: 27 YO Male with HTN(diagnosed 2 weeks ago by checking his blood pressure at [facility]) presents to ED for evaluation. Pt states that he has experienced chest discomfort and headache over the past 2 days with worsening symptoms over the past 8 hours, as well as dark colored urine which he thinks may be blood clots. Pt transported to ED by his family for further care and evaluation. Pt seen and evaluated in ED and found to have Hypeertensive Emergency and initiated on nicardipine drip and admitted to ICU. Pt also found to have evidence of Primary Hyperaldosteronism. Pt symptoms improved with therapy, and patient subsequently downgraded to telemetry. Nephrology consulted in ED. Past History Past Medical History: hypertension Past Surgical History: No surgical history, Other (reviewed) Social history: single. denies: smoking, alcohol abuse, prescription drug abuse Family history: hypertension Medications and Allergies Allergies Allergy/AdvReac Type Severity Reaction Status Date / Time No Known Allergies Allergy Verified 06/21/18 13:00 Home Medications Medication Instructions Recorded Confirmed Last Taken Type No Known Home Medications [No 07/04/17 06/21/18 Unknown History Reported Home Medications] Active Meds: Active Medications Acetaminophen (Tylenol) 650 mg PO Q4H PRN PRN Reason: Pain MILD(1-3)/Fever >100.5/FLOYD Albuterol (Proventil) 2.5 mg IH Q4HRT PRN PRN Reason: Shortness Of Breath Nicardipine HCl 50 mg/ Sodium (Chloride) 250 mls @ 25 mls/hr IV TITR JENNIFER; Protocol Last Titration: 06/21/18 19:59 Dose: 2.5 mg/hr, 12.5 mls/hr Ondansetron HCl (Zofran) 4 mg IV Q8H PRN PRN Reason: Nausea And Vomiting Sodium Chloride (Sodium Chloride Flush Syringe 10 Ml) 10 ml IV BID JENNIFER Sodium Chloride (Sodium Chloride Flush Syringe 10 Ml) 10 ml IV PRN PRN PRN Reason: LINE FLUSH Review of Systems Constitutional: no weight loss, no weight gain, no fever, no chills Ears, nose, mouth and throat: no ear pain, no ear discharge, no tinnitis, no decreased hearing, no nose pain, no nasal congestion Cardiovascular: no chest pain, no orthopnea, no palpitations, no rapid/ irregular heart beat, no edema, no syncope Respiratory: no cough, no cough with sputum, no excessive sputum, no hemoptysis , no shortness of breath Gastrointestinal: no abdominal pain, no nausea, no vomiting, no diarrhea, no constipation Genitourinary Male: hematuria, no dysuria, no discharge, no urinary frequency, no urinary hesitancy Rectal: no pain, no incontinence, no bleeding Musculoskeletal: no neck stiffness, no neck pain, no shooting arm pain, no arm numbness/tingling, no low back pain, no shooting leg pain Integumentary: no rash, no pruritis, no redness, no sores, no wounds Neurological: no paralysis, no weakness, no parathesias, no numbness, no tingling, no seizures, no syncope Psychiatric: no anxiety, no memory loss, no change in sleep habits, no sleep disturbances, no insomnia, no hypersomnia, no change in appetite, no change in libido Endocrine: no cold intolerance, no heat intolerance, no polyphagia, no excessive thirst, no polydipsia, no polyuria Hematologic/Lymphatic: no easy bruising, no easy bleeding, no lymphadenopathy, no lymphedema Allergic/Immunologic: no urticaria, no allergic rhinitis, no wheezing, no persistent infections, no anaphylaxis, no angioedema Exam - Constitutional Vitals: Temp Pulse Resp BP Pulse Ox 99 F 89 13 210/159 100 06/21/18 13:00 06/21/18 20:00 06/21/18 20:00 06/21/18 20:00 06/21/18 20:00 General appearance: Present: mild distress - EENT Eyes: Present: PERRL ENT: hearing intact, clear oral mucosa - Neck Neck: Present: supple, normal ROM - Respiratory Respiratory effort: normal Respiratory: bilateral: CTA - Cardiovascular Heart Sounds: Present: S1 & S2. Absent: rub, click - Extremities Extremities: pulses symmetrical, No edema Peripheral Pulses: within normal limits - Abdominal General gastrointestinal: Present: soft, non-tender, non-distended, normal bowel sounds Male genitourinary: Present: normal - Integumentary Integumentary: Present: clear, warm, dry - Musculoskeletal Musculoskeletal: gait normal, strength equal bilaterally - Psychiatric Psychiatric: appropriate mood/affect, intact judgment & insight - Neurologic Neurologic: CNII-XII intact, moves all extremities Results - Labs CBC & Chem 7: 06/21/18 13:06 06/21/18 13:06 Labs: Abnormal lab results 06/21/18 06/21/18 06/21/18 Range/Units 13:06 13:06 13:06 RBC 5.57 H (3.65-5.03) M/mm3 Hgb 16.4 H (11.8-15.2) gm/dl Hct 45.7 H (35.5-45.6) % MCV 82 L (84-94) fl MCHC 36 H (32-34) % RDW 12.8 L (13.2-15.2) % Seg Neutrophils % 70.2 H (40.0-70.0) % Sodium 133 L 133 L (137-145) mmol/L Potassium 2.7 L* 2.7 L* (3.6-5.0) mmol/L Chloride 87.7 L 87.4 L (98-107) mmol/L Carbon Dioxide 33 H 32 H (22-30) mmol/L Glucose 106 H 108 H (75-100) mg/dL POC Glucose (70-105) Free T4 (0.76-1.46) ng/dL 06/21/18 06/21/18 Range/Units 15:42 17:02 RBC (3.65-5.03) M/mm3 Hgb (11.8-15.2) gm/dl Hct (35.5-45.6) % MCV (84-94) fl MCHC (32-34) % RDW (13.2-15.2) % Seg Neutrophils % (40.0-70.0) % Sodium (137-145) mmol/L Potassium (3.6-5.0) mmol/L Chloride (98-107) mmol/L Carbon Dioxide (22-30) mmol/L Glucose (75-100) mg/dL POC Glucose 113 H (70-105) Free T4 1.61 H (0.76-1.46) ng/dL Assessment and Plan - Patient Problems (1) Hypertensive emergency without congestive heart failure Current Visit: Yes Status: Acute Plan to address problem: Admit to ICU, nicardipine drip, monitor bp q shift, Prednisone, Sprionolactone, IV hydralazine prn The high probability of a clinically significant, sudden or life threatening deterioration of the [Cardiac, renal] system(s) required my full and direct attention, intervention and personal management. The aggregate critical care time was [65] minutes. This time is in addition to time spent performing reported procedures but includes the following: [x] Data Review and interpretation [x] Patient assessment and monitoring of vital signs [x] Documentation [x] Medication orders and management (2) Primary hyperaldosteronism Current Visit: Yes Status: Suspected Plan to address problem: Aldosterone renin ratio, 24 hour VMA level, Thyroid panel, CT abdomen/pelvis to assess for adrenal mass, nephrology consulted in ED. (3) Hypokalemia Current Visit: Yes Status: Acute Plan to address problem: Repleted in ED, repeat bmp, (4) DVT prophylaxis Current Visit: Yes Status: Acute Plan to address problem: SCD to BLE shile in bed.
[2018-06-21] MEDS ORDERED: APRESOLINE IV PRN (20:58)
[2018-06-21] MEDS ORDERED: ALDACTONE PO SCH (22:00)
[2018-06-21] MEDS: SODIUM CHLORIDE FLUSH SYRINGE 10 ML IV SCH (22:04)
[2018-06-21 22:07] LABS: Calcium 9.6 mg/dL (8.4-10.2)
[2018-06-21] MEDS ORDERED: ZOFRAN IV ONE (23:20)
[2018-06-21] MEDS ORDERED: NACL 0.9% 1000 ML 1,000 ML IV SCH (23:30)
[2018-06-21] MEDS ORDERED: NACL 0.9% 1000 ML IV SCH (23:45)
[2018-06-22] MEDS: TYLENOL PO PRN ×2 (03:30→23:31)
[2018-06-22] MEDS ORDERED: LOPRESSOR PO SCH (09:00)
[2018-06-22] MEDS ORDERED: LOPRESSOR IV ONE (09:00)
--- NOTE | 2018-06-22 10:02 | Consultation ---
History of Present Illness - History of Present Illness Thank you for the consultation Patient was evaluated today My assessment and plan are as follows Renal failure in a patient who is 27-year-old admitted with uncontrolled hypertension next post radiocontrast creatinine has increased today need to monitor closely maintain hydration follow-up Accelerated hypertension in a patient was only 27-year-old, very high suspicion for hyperaldosteronism, however CT scan shows a solitary cyst in the kidney, adrenal gland reported to be normal on the CAT scan Hypokalemia highly suspicious for hyperaldosteronism, rule out any other causes for hypokalemia, patient also does appear to have evidence of alkalosis Elevated red blood cell count possibly could be due to dehydration to follow Admission creatinine was 1.4 Hyperglycemia blood sugar was around 108 to follow Admitted with chest pain that started yesterday that could be due to uncontrolled hypertension This needs to be monitored closely to make sure he does not have any evidence of aortic dissection, has had a CT of the abdomen pelvis If chest pain persist he will require another CAT scan or at least transesophageal echocardiogram to make sure he does not have any dissection Follow-up on an aldosterone and plasma renin, metanephrine I would like to order for a renal arterial duplex CAT scan does not show any obvious tumor of the adrenal gland Will do a 24-hour urine for potassium Current blood pressure around 182/118 with heart rate of 112 At this time I would like to continue with spironolactone, continue with potassium replacement, and discontinue metoprolol and start patient on labetalol 300 mg 3 times a day, his heart rate is stable he can be considered for a low dose of minoxidil in the meantime, or alternatively labetalol can be increased to 400 3 times a day Adequately counseled and educated regarding multiple renal related issues we'll continue to follow and make recommendation from renal standpoint Past History Past Medical History: hypertension Past Surgical History: No surgical history, Other (reviewed) Social history: single. denies: smoking, alcohol abuse, prescription drug abuse Family history: hypertension Medications and Allergies Allergies Allergy/AdvReac Type Severity Reaction Status Date / Time No Known Allergies Allergy Verified 06/21/18 13:00 Home Medications Medication Instructions Recorded Confirmed Last Taken Type No Known Home Medications [No 07/04/17 06/21/18 Unknown History Reported Home Medications] Active Meds: Active Medications Acetaminophen (Tylenol) 650 mg PO Q4H PRN PRN Reason: Pain MILD(1-3)/Fever >100.5/FLOYD Last Admin: 06/22/18 03:30 Dose: 650 mg Albuterol (Proventil) 2.5 mg IH Q4HRT PRN PRN Reason: Shortness Of Breath Hydralazine HCl (Apresoline) 20 mg IV Q6HR PRN PRN Reason: Hypertension Nicardipine HCl 50 mg/ Sodium (Chloride) 250 mls @ 25 mls/hr IV TITR JENNIFER; Protocol Last Titration: 06/22/18 07:09 Dose: Infused Sodium Chloride (Nacl 0.9% 1000 Ml) 1,000 mls @ 100 mls/hr IV DIRECT JENNIFER Sodium Chloride (Nacl 0.45% 1000 Ml) 1,000 mls @ 125 mls/hr IV DIRECT JENNIFER Labetalol HCl (Normodyne) 300 mg PO TID JENNIFER Ondansetron HCl (Zofran) 4 mg IV Q8H PRN PRN Reason: Nausea And Vomiting Sodium Chloride (Sodium Chloride Flush Syringe 10 Ml) 10 ml IV BID REPLACED BY [facility] Last Admin: 06/21/18 22:04 Dose: 10 ml Sodium Chloride (Sodium Chloride Flush Syringe 10 Ml) 10 ml IV PRN PRN PRN Reason: LINE FLUSH Spironolactone (Aldactone) 50 mg PO BID REPLACED BY [facility] Last Admin: 06/21/18 22:04 Dose: 50 mg Exam - Vital Signs Vital signs: Vital Signs Temp Pulse Resp BP Pulse Ox 99 F 98 H 16 236/178 99 06/21/18 13:00 06/21/18 13:00 06/21/18 13:00 06/21/18 13:00 06/21/18 13:00 Results - Lab Results 06/21/18 13:06 06/21/18 21:40 Most recent lab results Calcium 9.6 mg/dL (8.4-10.2) 06/21/18 21:40
[2018-06-22] MEDS: APRESOLINE IV SCH ×3 (11:29→21:05)
[2018-06-22] MEDS: SODIUM CHLORIDE FLUSH SYRINGE 10 ML IV SCH ×2 (11:31→21:42)
[2018-06-22] MEDS: NACL 0.45% 1000 ML 1,000 ML IV SCH ×2 (11:34→18:35)
[2018-06-22 11:38] LABS: BUN/Creatinine Ratio 13; Blood Urea Nitrogen 20 mg/dL (9-20); Calcium 9.4 mg/dL (8.4-10.2); Hemolysis Index 4
[2018-06-22] MEDS: PEPCID PO SCH (11:47)
--- NOTE | 2018-06-22 11:51 | Consultation ---
History of Present Illness Consult date: 06/22/18 Requesting physician: FRANCISCO DOHERTY Consult reason: chest pain, hypertension History of present illness: The pt is a 27 YO male with a past medical history significant for HTN. He is previously unknown to our practice. He presented with complaints of chest pain, "high blood pressure" and blood in the urine for 2 days prior to arrival. He describes his chest pain as a bout of midsternal pressure which is currently resolved. Pt also admits to severe headaches when he wakes up most mornings. He states that he has been checking his BP at [facility] on BP machine and knows that BPs have been elevated for quite some time. He does not take any prescription medications and does not have a PCP - he states this is because he does not have insurance. BP at arrival was 236/178. He was initiated on cardene gtt. On evaluation, he has no current complaints. He underwent stress test in 07/2017 which was normal. Past History Past Medical History: hypertension Past Surgical History: No surgical history Social history: single. denies: smoking, alcohol abuse, prescription drug abuse Family history: hypertension Medications and Allergies Allergies Allergy/AdvReac Type Severity Reaction Status Date / Time No Known Allergies Allergy Verified 06/21/18 13:00 Home Medications Medication Instructions Recorded Confirmed Last Taken Type No Known Home Medications [No 07/04/17 06/21/18 Unknown History Reported Home Medications] Active Meds: Active Medications Acetaminophen (Tylenol) 650 mg PO Q4H PRN PRN Reason: Pain MILD(1-3)/Fever >100.5/FLOYD Last Admin: 06/22/18 03:30 Dose: 650 mg Albuterol (Proventil) 2.5 mg IH Q4HRT PRN PRN Reason: Shortness Of Breath Famotidine (Pepcid) 20 mg PO DAILY [facility] Last Admin: 06/22/18 11:47 Dose: 20 mg Heparin Sodium (Porcine) (Heparin) 5,000 unit SUB-Q Q12HR [facility] Hydralazine HCl (Apresoline) 20 mg IV Q6HR PRN PRN Reason: Hypertension Hydralazine HCl (Apresoline) 10 mg IV Q4H [facility] Stop: 06/24/18 11:59 Last Admin: 06/22/18 11:29 Dose: 10 mg Nicardipine HCl 50 mg/ Sodium (Chloride) 250 mls @ 25 mls/hr IV TITR [facility]; Protocol Last Titration: 06/22/18 07:09 Dose: Infused Sodium Chloride (Nacl 0.45% 1000 Ml) 1,000 mls @ 125 mls/hr IV DIRECT [facility] Last Admin: 06/22/18 11:34 Dose: 125 mls/hr Labetalol HCl (Normodyne) 300 mg PO TID [facility] Ondansetron HCl (Zofran) 4 mg IV Q8H PRN PRN Reason: Nausea And Vomiting Sodium Chloride (Sodium Chloride Flush Syringe 10 Ml) 10 ml IV BID [facility] Last Admin: 06/22/18 11:31 Dose: 10 ml Sodium Chloride (Sodium Chloride Flush Syringe 10 Ml) 10 ml IV PRN PRN PRN Reason: LINE FLUSH Spironolactone (Aldactone) 50 mg PO BID [facility] Review of Systems Constitutional: no weight loss, no weight gain, no fever, no chills, no sweats Ears, nose, mouth and throat: no ear pain, no nose pain, no sinus pressure, no sinus pain Cardiovascular: chest pain, high blood pressure, no orthopnea, no palpitations, no rapid/irregular heart beat, no edema, no syncope, no lightheadedness, no shortness of breath, no dyspnea on exertion, no paroxysmal nocturnal dyspnea, no leg edema, no decreased exercise tolerance Respiratory: no cough, no shortness of breath, no dyspnea on exertion, no congestion, no wheezing, no pain on inspiration Gastrointestinal: no abdominal pain, no nausea, no vomiting, no diarrhea, no constipation, no change in bowel habits Genitourinary Male: hematuria, no dysuria, no flank pain, no discharge, no urinary frequency, no urinary hesitancy Musculoskeletal: no neck stiffness, no neck pain, no shooting arm pain, no arm numbness/tingling, no low back pain, no shooting leg pain, no leg numbness/ tingling, no redness of joints Integumentary: no rash, no pruritis, no redness, no sores, no wounds Neurological: headaches, no head injury, no paralysis, no weakness, no parathesias, no numbness, no tingling, no seizures, no syncope Psychiatric: no anxiety Endocrine: no cold intolerance, no heat intolerance Hematologic/Lymphatic: no easy bruising Allergic/Immunologic: no urticaria, no wheezing Physical Examination Vital Signs Temp Pulse Resp BP Pulse Ox 99 F 98 H 16 236/178 99 06/21/18 13:00 06/21/18 13:00 06/21/18 13:00 06/21/18 13:00 06/21/18 13:00 General appearance: no acute distress HEENT: Positive: PERRL, Normocephaly, Mucus Membranes Moist Neck: Positive: neck supple, trachea midline Cardiac: Positive: Reg Rate and Rhythm, S1/S2 Lungs: Positive: clear to auscultation Neuro: Positive: Grossly Intact Abdomen: Positive: Soft. Negative: Tender Skin: Positive: Clear. Negative: Rash, Wound Musculoskeletal: No Pain Extremities: Absent: edema Results 06/21/18 13:06 06/22/18 Unknown Cardiac Enzymes 06/21/18 Range/Units 13:06 AST 24 (5-40) units/L CBC 06/21/18 Range/Units 13:06 WBC 7.8 (4.5-11.0) K/mm3 RBC 5.57 H (3.65-5.03) M/mm3 Hgb 16.4 H (11.8-15.2) gm/dl Hct 45.7 H (35.5-45.6) % Plt Count 252 (140-440) K/mm3 Lymph # 1.8 (1.2-5.4) K/mm3 [place] # 0.4 (0.0-0.8) K/mm3 Eos # 0.0 (0.0-0.4) K/mm3 Baso # 0.1 (0.0-0.1) K/mm3 Comprehensive Metabolic Panel 06/21/18 06/21/18 06/21/18 Range/Units 13:06 13:06 21:40 Sodium 133 L 133 L 134 L (137-145) mmol/L Potassium 2.7 L* 2.7 L* 3.0 L (3.6-5.0) mmol/L Chloride 87.7 L 87.4 L 91.3 L (98-107) mmol/L Carbon Dioxide 33 H 32 H 28 (22-30) mmol/L BUN 17 17 22 H (9-20) mg/dL Creatinine 1.4 1.4 1.7 H (0.8-1.5) mg/dL Glucose 106 H 108 H 149 H (75-100) mg/dL Calcium 9.3 9.4 9.6 (8.4-10.2) mg/dL AST 24 (5-40) units/L ALT 18 (7-56) units/L Alkaline Phosphatase 120 (35-129) units/L Total Protein 7.8 (6.3-8.2) g/dL Albumin 4.1 (3.9-5) g/dL 06/22/18 Range/Units Unknown Sodium 133 L (137-145) mmol/L Potassium (3.6-5.0) mmol/L Chloride 89.8 L (98-107) mmol/L Carbon Dioxide 29 (22-30) mmol/L BUN 20 (9-20) mg/dL Creatinine 1.5 (0.8-1.5) mg/dL Glucose 113 H (75-100) mg/dL Calcium 9.4 (8.4-10.2) mg/dL AST (5-40) units/L ALT (7-56) units/L Alkaline Phosphatase (35-129) units/L Total Protein (6.3-8.2) g/dL Albumin (3.9-5) g/dL - Imaging and Cardiology Echo: pending EKG: report reviewed, image reviewed EKG interpretations - Telemetry EKG Rhythm: Sinus Rhythm - EKG Sinus rhythms and dysrhythmias: sinus rhythm Chamber hypertrophy or enlargement: left ventricular hypertro Repolarization changes or abnormalities: repolarization abn secondary to ventricular hypertrophy Assessment and Plan Chest pain currently resolved. ECG with no acute ischemic changes. Moe negative for AMI. Optimize anti-hypertensive regimen. Per nephrology, pt with high suspicion of hyperaldosteronism. Obtain echo. Replete K+ and obtain serum Mg. The patient has been seen in conjunction with Dr. Rees who agrees with the assessment and plan of care. - Patient Problems (1) Hypertensive emergency Current Visit: Yes Status: Acute (2) Chest pain Current Visit: Yes Status: Acute (3) NANCY (acute kidney injury) Current Visit: Yes Status: Acute (4) Hematuria Current Visit: Yes Status: Acute (5) Hypokalemia Current Visit: Yes Status: Acute (6) Medical non-compliance Current Visit: Yes Status: Acute
--- NOTE | 2018-06-22 12:13 | XRay Report ---
AP CHEST: HISTORY: Hypertensive urgency AP view of the chest demonstrates a normal mediastinal and cardiac contour with clear lungs and normal bony and soft tissue structures. IMPRESSION: Unremarkable AP chest.
[2018-06-22] MEDS: K-DUR PO SCH ×3 (12:39→21:49)
--- NOTE | 2018-06-22 13:18 | Consultation ---
History of Present Illness Consult date: 06/22/18 Requesting physician: ROWDY RAMIREZ Reason for consult: chest pain, other (Hypertensive Emergency; NANCY; Hypokalemia) History of present illness: PULMONARY/CCM CONSULT NOTE (Full dictation # [id number]) Please see dictated notes for full details Past History Past Medical History: hypertension Past Surgical History: No surgical history Social history: single. denies: smoking, alcohol abuse, prescription drug abuse Family history: hypertension Medications and Allergies Allergies Allergy/AdvReac Type Severity Reaction Status Date / Time No Known Allergies Allergy Verified 06/21/18 13:00 Home Medications Medication Instructions Recorded Confirmed Last Taken Type No Known Home Medications [No 07/04/17 06/21/18 Unknown History Reported Home Medications] Active Meds: Active Medications Acetaminophen (Tylenol) 650 mg PO Q4H PRN PRN Reason: Pain MILD(1-3)/Fever >100.5/FLOYD Last Admin: 06/22/18 03:30 Dose: 650 mg Albuterol (Proventil) 2.5 mg IH Q4HRT PRN PRN Reason: Shortness Of Breath Famotidine (Pepcid) 20 mg PO DAILY [facility] Last Admin: 06/22/18 11:47 Dose: 20 mg Heparin Sodium (Porcine) (Heparin) 5,000 unit SUB-Q Q12HR [facility] Hydralazine HCl (Apresoline) 20 mg IV Q6HR PRN PRN Reason: Hypertension Hydralazine HCl (Apresoline) 10 mg IV Q4H [facility] Stop: 06/24/18 11:59 Last Admin: 06/22/18 11:29 Dose: 10 mg Nicardipine HCl 50 mg/ Sodium (Chloride) 250 mls @ 25 mls/hr IV TITR [facility]; Protocol Last Titration: 06/22/18 07:09 Dose: Infused Sodium Chloride (Nacl 0.45% 1000 Ml) 1,000 mls @ 125 mls/hr IV DIRECT [facility] Last Admin: 06/22/18 11:34 Dose: 125 mls/hr Labetalol HCl (Normodyne) 300 mg PO TID [facility] Ondansetron HCl (Zofran) 4 mg IV Q8H PRN PRN Reason: Nausea And Vomiting Potassium Chloride (K-Dur) 40 meq PO Q4H [facility] Stop: 06/22/18 21:01 Last Admin: 06/22/18 12:39 Dose: 40 meq Sodium Chloride (Sodium Chloride Flush Syringe 10 Ml) 10 ml IV BID COUNTS [facility]CLUDE 234 BEDS AT THE [facility] Last Admin: 06/22/18 11:31 Dose: 10 ml Sodium Chloride (Sodium Chloride Flush Syringe 10 Ml) 10 ml IV PRN PRN PRN Reason: LINE FLUSH Spironolactone (Aldactone) 50 mg PO BID COUNTS INCLUDE 234 BEDS AT THE [facility] Physical Examination Vital signs: Vital Signs Temp Pulse Resp BP Pulse Ox 99 F 98 H 16 236/178 99 06/21/18 13:00 06/21/18 13:00 06/21/18 13:00 06/21/18 13:00 06/21/18 13:00 Results - Laboratory Findings CBC and BMP: 06/21/18 13:06 06/23/18 04:23 Abnormal lab findings: Abnormal Labs 06/21/18 06/21/18 06/21/18 13:06 13:06 13:06 RBC 5.57 H Hgb 16.4 H Hct 45.7 H MCV 82 L MCHC 36 H RDW 12.8 L Seg Neutrophils % 70.2 H Sodium 133 L 133 L Potassium 2.7 L* 2.7 L* Chloride 87.7 L 87.4 L Carbon Dioxide 33 H 32 H BUN Creatinine Glucose 106 H 108 H POC Glucose Free T4 06/21/18 06/21/18 06/21/18 15:42 17:02 21:40 RBC Hgb Hct MCV MCHC RDW Seg Neutrophils % Sodium 134 L Potassium 3.0 L Chloride 91.3 L Carbon Dioxide BUN 22 H Creatinine 1.7 H Glucose 149 H POC Glucose 113 H Free T4 1.61 H 06/22/18 Unknown RBC Hgb Hct MCV MCHC RDW Seg Neutrophils % Sodium 133 L Potassium 2.7 L* Chloride 89.8 L Carbon Dioxide BUN Creatinine Glucose 113 H POC Glucose Free T4
[2018-06-22] MEDS: NORMODYNE PO SCH ×2 (15:41→21:30)
[2018-06-22] MEDS: ALDACTONE PO SCH ×2 (15:46→23:31)
--- NOTE | 2018-06-22 19:21 | Progress Note ---
Assessment and Plan Assessment and plan: 27 YO Male with HTN(diagnosed 2 weeks ago by checking his blood pressure at [facility] BP machine) presents to ED for evaluation. Pt states that he has experienced chest discomfort and headache over the past 2 days with worsening symptoms over the past 8 hours, as well as dark colored urine which he thinks may be blood clots. Pt transported to ED by his family for further care and evaluation. Pt seen and evaluated in ED and found to have Hypeertensive Emergency and initiated on nicardipine drip and admitted to ICU. Pt also found to have evidence of possible Primary Hyperaldosteronism. Pt symptoms improved with therapy, and patient subsequently downgraded to telemetry. Nephrology consulted in ED. (1) Hypertensive emergency without congestive heart failure Current Visit: Yes Status: Acute Plan to address problem: contiue icu care with nicardipine drip, monitor bp q shift, Prednisone, Sprionolactone, IV hydralazine prn start bp control with labatelol, hydralazin nephrology input noted (2) Primary hyperaldosteronism Current Visit: Yes Status: Suspected Plan to address problem: Aldosterone renin ratio, 24 hour VMA level, Thyroid panel, CT abdomen/pelvis to assess for adrenal mass, nephrology consulted in ED. (3) Hypokalemia Current Visit: Yes Status: Acute Plan to address problem: Repleted in ED, repeat bmp, (4) DVT prophylaxis Current Visit: Yes Status: Acute Plan to address problem: SCD to BLE shile in bed. The high probability of a clinically significant, sudden or life threatening deterioration of the [Cardiac, renal] system(s) required my full and direct attention, intervention and personal management. The aggregate critical care time was [65] minutes. This time is in addition to time spent performing reported procedures but includes the following: [x] Data Review and interpretation [x] Patient assessment and monitoring of vital signs [x] Documentation [x] Medication orders and management History Interval history: Patient seen and examined, denies any further chest pain at this time. No nausea , reports a bit of headache. Hospitalist Physical - Physical exam Narrative exam: VITAL SIGNS: Reviewed. GENERAL: The patient appeared well nourished and normally developed. Vital signs as documented. HEAD: No signs of head trauma. EYES: Pupils are equal. Extraocular motions intact. EARS: Hearing grossly intact. MOUTH: Oropharynx is normal. NECK: No adenopathy, no JVD. CHEST: Chest with clear breath sounds bilaterally. No wheezes, rales, or rhonchi. CARDIAC: Regular rate and rhythm. S1 and S2, without murmurs, gallops, or rubs. VASCULAR: No Edema. Peripheral pulses normal and equal in all extremities. ABDOMEN: Soft, without detectable tenderness. No sign of distention. No rebound or guarding, and no masses palpated. Bowel Sounds normal. MUSCULOSKELETAL: Good range of motion of all major joints. Extremities without clubbing, cyanosis or edema. NEUROLOGIC EXAM: Alert and oriented x 3. No focal sensory or strength deficits. Speech normal. Follows commands. PSYCHIATRIC: Mood normal. SKIN: tattoes. - Constitutional Vitals: Temp Pulse Resp BP Pulse Ox 98 F 103 H 20 187/112 100 06/22/18 08:06 06/22/18 15:46 06/22/18 08:50 06/22/18 15:46 06/22/18 08:06 General appearance: Present: no acute distress Results - Labs CBC & Chem 7: 06/21/18 13:06 06/23/18 04:23 Labs: Laboratory Last Values WBC 7.8 K/mm3 (4.5-11.0) 06/21/18 13:06 RBC 5.57 M/mm3 (3.65-5.03) H 06/21/18 13:06 Hgb 16.4 gm/dl (11.8-15.2) H 06/21/18 13:06 Hct 45.7 % (35.5-45.6) H 06/21/18 13:06 MCV 82 fl (84-94) L 06/21/18 13:06 MCH 30 pg (28-32) 06/21/18 13:06 MCHC 36 % (32-34) H 06/21/18 13:06 RDW 12.8 % (13.2-15.2) L 06/21/18 13:06 Plt Count 252 K/mm3 (140-440) 06/21/18 13:06 Lymph % (Auto) 23.2 % (13.4-35.0) 06/21/18 13:06 [place] % (Auto) 5.3 % (0.0-7.3) 06/21/18 13:06 Eos % (Auto) 0.6 % (0.0-4.3) 06/21/18 13:06 Baso % (Auto) 0.7 % (0.0-1.8) 06/21/18 13:06 Lymph # 1.8 K/mm3 (1.2-5.4) 06/21/18 13:06 [place] # 0.4 K/mm3 (0.0-0.8) 06/21/18 13:06 Eos # 0.0 K/mm3 (0.0-0.4) 06/21/18 13:06 Baso # 0.1 K/mm3 (0.0-0.1) 06/21/18 13:06 Seg Neutrophils % 70.2 % (40.0-70.0) H 06/21/18 13:06 Seg Neutrophils # 5.5 K/mm3 (1.8-7.7) 06/21/18 13:06 Sodium 133 mmol/L (137-145) L 06/22/18 Unknown Potassium 2.7 mmol/L (3.6-5.0) L* 06/22/18 Unknown Chloride 89.8 mmol/L (98-107) L 06/22/18 Unknown Carbon Dioxide 29 mmol/L (22-30) 06/22/18 Unknown Anion Gap 17 mmol/L 06/22/18 Unknown BUN 20 mg/dL (9-20) 06/22/18 Unknown Creatinine 1.5 mg/dL (0.8-1.5) 06/22/18 Unknown Estimated GFR > 60 ml/min 06/22/18 Unknown BUN/Creatinine Ratio 13 % 06/22/18 Unknown Glucose 113 mg/dL (75-100) H 06/22/18 Unknown POC Glucose 113 (70-105) H 06/21/18 17:02 Calcium 9.4 mg/dL (8.4-10.2) 06/22/18 Unknown Phosphorus 3.20 mg/dL (2.5-4.5) 06/22/18 Unknown Magnesium 2.50 mg/dL (1.7-2.3) H 06/22/18 Unknown Total Bilirubin 0.50 mg/dL (0.1-1.2) 06/21/18 13:06 AST 24 units/L (5-40) 06/21/18 13:06 ALT 18 units/L (7-56) 06/21/18 13:06 Alkaline Phosphatase 120 units/L (35-129) 06/21/18 13:06 Total Creatine Kinase 149 units/L (55-170) 06/21/18 13:06 Troponin T < 0.010 ng/mL (0.00-0.029) 06/21/18 21:31 Total Protein 7.8 g/dL (6.3-8.2) 06/21/18 13:06 Albumin 4.1 g/dL (3.9-5) 06/21/18 13:06 Albumin/Globulin Ratio 1.1 % 06/21/18 13:06 TSH 1.790 mlU/mL (0.270-4.200) 06/21/18 15:42 Free T4 1.61 ng/dL (0.76-1.46) H 06/21/18 15:42 Urine Color Yellow (Yellow) 06/21/18 15:59 Urine Turbidity Slightly-cloudy (Clear) 06/21/18 15:59 Urine pH 7.0 (5.0-7.0) 06/21/18 15:59 Ur Specific [place] 1.015 (1.003-1.030) 06/21/18 15:59 Urine Protein >500 mg/dL (Negative) 06/21/18 15:59 Urine Glucose (UA) 50 mg/dL (Negative) 06/21/18 15:59 Urine Ketones Neg mg/dL (Negative) 06/21/18 15:59 Urine Blood Mod (Negative) 06/21/18 15:59 Urine Nitrite Neg (Negative) 06/21/18 15:59 Urine Bilirubin Neg (Negative) 06/21/18 15:59 Urine Urobilinogen < 2.0 mg/dL (<2.0) 06/21/18 15:59 Ur Leukocyte Esterase Neg (Negative) 06/21/18 15:59 Urine WBC (Auto) 1.0 /HPF (0.0-6.0) 06/21/18 15:59 Urine RBC (Auto) > 182.0 /HPF (0.0-6.0) 06/21/18 15:59 Urine Opiates Screen Presumptive negative 06/21/18 15:59 Urine Methadone Screen Presumptive negative 06/21/18 15:59 Ur Barbiturates Screen Presumptive negative 06/21/18 15:59 Ur Phencyclidine Scrn Presumptive negative 06/21/18 15:59 Ur Amphetamines Screen Presumptive negative 06/21/18 15:59 U Benzodiazepines Scrn Presumptive negative 06/21/18 15:59 Urine Cocaine Screen Presumptive negative 06/21/18 15:59 U Marijuana (THC) Screen Presumptive positive 06/21/18 15:59 Drugs of Abuse Note Disclamer 06/21/18 15:59
[2018-06-22] MEDS: APRESOLINE PO SCH (21:29)
[2018-06-22] MEDS: HEPARIN SUB-Q SCH (21:36)
[2018-06-22] MEDS ORDERED: K-DUR PO ONE (22:42)
[2018-06-23] MEDS: APRESOLINE IV SCH ×6 (00:56→21:15)
[2018-06-23 01:15] LABS: Calcium 8.8 mg/dL (8.4-10.2)
[2018-06-23] MEDS: NACL 0.45% 1000 ML 1,000 ML IV SCH (04:32)
[2018-06-23 05:35] LABS: Calcium 8.8 mg/dL (8.4-10.2)
[2018-06-23] MEDS: APRESOLINE PO SCH ×4 (06:03→21:08)
[2018-06-23] MEDS: NORMODYNE PO SCH ×3 (08:02→21:14)
[2018-06-23] MEDS: TYLENOL PO PRN ×2 (08:03→21:10)
[2018-06-23] MEDS: PEPCID PO SCH (09:57)
[2018-06-23] MEDS: SODIUM CHLORIDE FLUSH SYRINGE 10 ML IV SCH ×2 (09:58→21:16)
[2018-06-23] MEDS: HEPARIN SUB-Q SCH ×2 (09:58→21:11)
[2018-06-23] MEDS: ALDACTONE PO SCH ×2 (10:00→21:11)
--- NOTE | 2018-06-23 10:55 | Progress Note ---
Assessment and Plan Uncontrolled hypertension with hypertensive emergency. Gross hematuria. Hypokalemia in the setting described above could well be a manifestation of hyperaldosteronism. Mild hyponatremia. Chest pain. Headache. Likely hemoconcentration with elevated serum hemoglobin. Medication noncompliance. Subjective Date of service: 06/23/18 Principal diagnosis: Hypertensive Emergency; Chest Pain; Hypokalemia; Headache Interval history: Patient is seen today for: Hypertensive Emergency; Chest Pain; Hypokalemia; Headache Seen and examined at bedside; 24-hour events reviewed; nursing and respiratory care staff consulted; Objective Vital Signs - 12hr 06/22/18 06/22/18 06/22/18 23:00 23:10 23:20 Temperature Pulse Rate 100 H 107 H 102 H Respiratory 15 12 15 Rate Blood Pressure 143/87 153/111 162/95 O2 Sat by Pulse 98 100 98 Oximetry 06/22/18 06/22/18 06/22/18 23:30 23:31 23:40 Temperature Pulse Rate 103 H 103 H 100 H Respiratory 10 L 12 Rate Blood Pressure 155/105 155/105 155/103 O2 Sat by Pulse 97 98 Oximetry 06/22/18 06/23/18 06/23/18 23:50 00:00 00:10 Temperature Pulse Rate 98 H 97 H 96 H Respiratory 16 15 15 Rate Blood Pressure 158/110 160/102 150/108 O2 Sat by Pulse 99 99 98 Oximetry 06/23/18 06/23/18 06/23/18 00:20 00:30 00:40 Temperature Pulse Rate 101 H 100 H Respiratory 12 28 H 19 Rate Blood Pressure 150/114 144/100 150/94 O2 Sat by Pulse 98 98 98 Oximetry 06/23/18 06/23/18 06/23/18 00:50 00:56 01:00 Temperature Pulse Rate 101 H 103 H 100 H Respiratory 11 L Rate Blood Pressure 162/117 162/117 153/97 O2 Sat by Pulse 99 99 Oximetry 06/23/18 06/23/18 06/23/18 01:10 01:20 01:30 Temperature Pulse Rate 101 H 100 H 99 H Respiratory Rate Blood Pressure 148/93 150/105 161/111 O2 Sat by Pulse 98 98 98 Oximetry 06/23/18 06/23/18 06/23/18 01:40 01:50 02:00 Temperature Pulse Rate 100 H 101 H 103 H Respiratory Rate Blood Pressure 153/102 167/110 159/111 O2 Sat by Pulse 98 98 99 Oximetry 06/23/18 06/23/18 06/23/18 02:11 02:20 02:30 Temperature Pulse Rate 108 H 104 H 99 H Respiratory Rate Blood Pressure 170/110 169/113 158/113 O2 Sat by Pulse 98 98 98 Oximetry 06/23/18 06/23/18 06/23/18 02:40 02:50 03:00 Temperature Pulse Rate 96 H 104 H 99 H Respiratory Rate Blood Pressure 163/116 162/112 182/120 O2 Sat by Pulse 99 97 99 Oximetry 06/23/18 06/23/18 06/23/18 03:10 03:20 03:30 Temperature Pulse Rate 95 H 97 H 93 H Respiratory Rate Blood Pressure 165/109 166/119 166/111 O2 Sat by Pulse 99 99 99 Oximetry 06/23/18 06/23/18 06/23/18 03:41 03:50 04:00 Temperature Pulse Rate 93 H 95 H 94 H Respiratory Rate Blood Pressure 204/88 204/96 210/96 O2 Sat by Pulse 100 99 99 Oximetry 06/23/18 06/23/18 06/23/18 04:10 04:20 04:30 Temperature Pulse Rate 94 H 97 H 100 H Respiratory Rate Blood Pressure 190/92 200/96 206/110 O2 Sat by Pulse 100 100 98 Oximetry 06/23/18 06/23/18 06/23/18 04:40 04:50 05:00 Temperature Pulse Rate 95 H 94 H 101 H Respiratory 14 13 19 Rate Blood Pressure 209/116 209/118 198/115 O2 Sat by Pulse 98 99 98 Oximetry 06/23/18 06/23/18 06/23/18 05:10 05:20 05:30 Temperature Pulse Rate 99 H 101 H 93 H Respiratory 18 19 14 Rate Blood Pressure 193/119 191/111 180/122 O2 Sat by Pulse 100 99 99 Oximetry 06/23/18 06/23/18 06/23/18 05:40 05:50 06:00 Temperature Pulse Rate 92 H 99 H 93 H Respiratory 16 15 15 Rate Blood Pressure 182/119 175/132 174/119 O2 Sat by Pulse 99 99 99 Oximetry 06/23/18 06/23/18 06/23/18 06:03 06:10 06:20 Temperature Pulse Rate 100 H 105 H 108 H Respiratory 12 13 Rate Blood Pressure 174/119 168/127 146/107 O2 Sat by Pulse 100 99 Oximetry 06/23/18 06/23/18 06/23/18 06:30 06:40 06:50 Temperature Pulse Rate 113 H 107 H 109 H Respiratory 16 15 15 Rate Blood Pressure 152/100 161/106 171/106 O2 Sat by Pulse 98 98 98 Oximetry 06/23/1818 06/23/18 07:00 07:10 07:20 Temperature Pulse Rate 109 H 116 H 116 H Respiratory 18 14 11 L Rate Blood Pressure 157/109 186/117 154/96 O2 Sat by Pulse 98 98 98 Oximetry 06/23/18 06/23/18 06/23/18 07:30 07:40 07:50 Temperature Pulse Rate 114 H 109 H 122 H Respiratory 15 15 13 Rate Blood Pressure 158/92 139/92 142/96 O2 Sat by Pulse 98 98 97 Oximetry 06/23/18 06/23/18 06/23/18 08:00 08:02 08:10 Temperature 98.5 F Pulse Rate 116 H 112 H 107 H Respiratory 13 20 Rate Blood Pressure 163/114 163/114 167/107 O2 Sat by Pulse 99 100 Oximetry 06/23/18 06/23/18 06/23/18 08:20 08:30 08:40 Temperature Pulse Rate 102 H 100 H 98 H Respiratory 18 15 14 Rate Blood Pressure 163/112 172/119 167/117 O2 Sat by Pulse 100 98 99 Oximetry 06/23/18 06/23/18 06/23/18 08:50 09:00 09:10 Temperature Pulse Rate 99 H 99 H 109 H Respiratory 14 15 12 Rate Blood Pressure 159/114 165/109 179/120 O2 Sat by Pulse 99 100 98 Oximetry 06/23/1818 06/23/18 09:20 09:30 09:40 Temperature Pulse Rate 110 H 104 H 99 H Respiratory 14 14 22 Rate Blood Pressure 144/100 163/104 140/86 O2 Sat by Pulse 98 98 99 Oximetry 06/23/1818 06/23/18 09:50 09:57 10:00 Temperature Pulse Rate 100 H 101 H 99 H Respiratory 13 15 Rate Blood Pressure 136/90 136/90 132/86 O2 Sat by Pulse 99 99 Oximetry 06/23/18 06/23/18 10:10 10:20 Temperature Pulse Rate 98 H 95 H Respiratory 13 16 Rate Blood Pressure 138/93 129/89 O2 Sat by Pulse 99 99 Oximetry CBC and BMP: 06/21/18 13:06 06/24/18 05:24 Abnormal lab findings: Abnormal Labs 06/21/18 06/21/18 06/21/18 13:06 13:06 13:06 RBC 5.57 H Hgb 16.4 H Hct 45.7 H MCV 82 L MCHC 36 H RDW 12.8 L Seg Neutrophils % 70.2 H Sodium 133 L 133 L Potassium 2.7 L* 2.7 L* Chloride 87.7 L 87.4 L Carbon Dioxide 33 H 32 H BUN Creatinine Glucose 106 H 108 H POC Glucose Magnesium Free T4 06/21/18 06/21/18 06/21/18 15:42 17:02 21:40 RBC Hgb Hct MCV MCHC RDW Seg Neutrophils % Sodium 134 L Potassium 3.0 L Chloride 91.3 L Carbon Dioxide BUN 22 H Creatinine 1.7 H Glucose 149 H POC Glucose 113 H Magnesium Free T4 1.61 H 06/22/18 06/22/18 06/23/18 Unknown Unknown 00:33 RBC Hgb Hct MCV MCHC RDW Seg Neutrophils % Sodium 133 L 133 L Potassium 2.7 L* Chloride 89.8 L 95.4 L Carbon Dioxide BUN 27 H Creatinine 1.8 H Glucose 113 H 110 H POC Glucose Magnesium 2.50 H Free T4 06/23/18 04:23 RBC Hgb Hct MCV MCHC RDW Seg Neutrophils % Sodium 134 L Potassium 3.3 L Chloride 96.6 L Carbon Dioxide BUN 23 H Creatinine 1.8 H Glucose POC Glucose Magnesium Free T4
--- NOTE | 2018-06-23 11:41 | Progress Note ---
Assessment and Plan Echo reviewed - EF 50-55%, mod LVH, impaired relaxation. Chest pain resolved. No indication for ischemic evaluation at this time. BPs improving. Per nephrology, pt with high suspicion of hyperaldosteronism. Replace lytes PRN. Currently stable cardiac status. Pt may tx out of CCU to telemetry from cardiology standpoint. The patient has been seen in conjunction with Dr. Rees who agrees with the assessment and plan of care. - Patient Problems (1) Hypertensive emergency Current Visit: Yes Status: Acute (2) Chest pain Current Visit: Yes Status: Resolved (3) NANCY (acute kidney injury) Current Visit: Yes Status: Acute (4) Hematuria Current Visit: Yes Status: Acute (5) Hypokalemia Current Visit: Yes Status: Acute (6) Medical non-compliance Current Visit: Yes Status: Acute Subjective Date of service: 06/23/18 Principal diagnosis: Hypertensive Emergency; Chest Pain; Hypokalemia; Headache Interval history: pt resting in bed, no current complaints. off cardene gtt. Objective Last Vital Signs Temp 98.5 F 06/23/18 08:00 Pulse 95 H 06/23/18 10:20 Resp 16 06/23/18 10:20 BP 129/89 06/23/18 10:20 Pulse Ox 99 06/23/18 10:20 - Physical Examination General: No Apparent Distress HEENT: Positive: PERRL, Normocephaly, Mucus Membranes Moist Neck: Positive: neck supple, trachea midline Cardiac: Positive: Reg Rate and Rhythm, S1/S2 Lungs: Positive: clear to auscultation Neuro: Positive: Grossly Intact Abdomen: Positive: Soft. Negative: Tender Skin: Positive: Clear. Negative: Rash, Wound Musculoskeletal: No Pain Extremities: Absent: edema - Labs and Meds Comprehensive Metabolic Panel 06/22/18 06/23/18 06/23/18 Range/Units Unknown 00:33 04:23 Sodium 133 L 133 L 134 L (137-145) mmol/L Potassium 2.7 L* 3.6 D 3.3 L (3.6-5.0) mmol/L Chloride 89.8 L 95.4 L 96.6 L (98-107) mmol/L Carbon Dioxide 29 25 26 (22-30) mmol/L BUN 20 27 H 23 H (9-20) mg/dL Creatinine 1.5 1.8 H 1.8 H (0.8-1.5) mg/dL Glucose 113 H 110 H 98 (75-100) mg/dL Calcium 9.4 8.8 8.8 (8.4-10.2) mg/dL - Imaging and Cardiology EKG: report reviewed, image reviewed Echo: pending - EKG Sinus rhythms and dysrhythmias: sinus rhythm Chamber hypertrophy or enlargement: left ventricular hypertro Repolarization changes or abnormalities: repolarization abn secondary to ventricular hypertrophy
[2018-06-23] MEDS ORDERED: K-DUR PO ONE (12:00)
--- NOTE | 2018-06-23 12:21 | Progress Note ---
Assessment and Plan Impression : * Acute renal failure * Accelerated hypertension * Hypokalemia highly suspicious for hyperaldosteronism, * Elevated red blood cell count possibly could be due to dehydration * Hyperglycemia Recommendations : * His blood pressure seems to be better today * Continue current antihypertensive meds * Follow up results of secondary hypertension w/u * check renal artery doppler * CT scan of abdomen did not show any adrenal lesion * Stop IV fluid Subjective Date of service: 06/23/18 Principal diagnosis: Hypertensive Emergency; Chest Pain; Hypokalemia; Headache Interval history: patient remains in the ICU . Awake and alert . Currently on IV fluid Objective - Vital Signs Vital signs: Vital Signs - 12hr 06/23/18 06/23/18 06/23/18 00:30 00:40 00:50 Temperature Pulse Rate 100 H 101 H Respiratory 28 H 19 11 L Rate Blood Pressure 144/100 150/94 162/117 O2 Sat by Pulse 98 98 99 Oximetry 06/23/18 06/23/18 06/23/18 00:56 01:00 01:10 Temperature Pulse Rate 103 H 100 H 101 H Respiratory Rate Blood Pressure 162/117 153/97 148/93 O2 Sat by Pulse 99 98 Oximetry 06/23/18 06/23/18 06/23/18 01:20 01:30 01:40 Temperature Pulse Rate 100 H 99 H 100 H Respiratory Rate Blood Pressure 150/105 161/111 153/102 O2 Sat by Pulse 98 98 98 Oximetry 06/23/18 06/23/18 06/23/18 01:50 02:00 02:11 Temperature Pulse Rate 101 H 103 H 108 H Respiratory Rate Blood Pressure 167/110 159/111 170/110 O2 Sat by Pulse 98 99 98 Oximetry 06/23/18 06/23/18 06/23/18 02:20 02:30 02:40 Temperature Pulse Rate 104 H 99 H 96 H Respiratory Rate Blood Pressure 169/113 158/113 163/116 O2 Sat by Pulse 98 98 99 Oximetry 06/23/18 06/23/18 06/23/18 02:50 03:00 03:10 Temperature Pulse Rate 104 H 99 H 95 H Respiratory Rate Blood Pressure 162/112 182/120 165/109 O2 Sat by Pulse 97 99 99 Oximetry 06/23/18 06/23/18 06/23/18 03:20 03:30 03:41 Temperature Pulse Rate 97 H 93 H 93 H Respiratory Rate Blood Pressure 166/119 166/111 204/88 O2 Sat by Pulse 99 99 100 Oximetry 18 18 06/23/18 03:50 04:00 04:10 Temperature Pulse Rate 95 H 94 H 94 H Respiratory Rate Blood Pressure 204/96 210/96 190/92 O2 Sat by Pulse 99 99 100 Oximetry 18 18 06/23/18 04:20 04:30 04:40 Temperature Pulse Rate 97 H 100 H 95 H Respiratory 14 Rate Blood Pressure 200/96 206/110 209/116 O2 Sat by Pulse 100 98 98 Oximetry 06/23/1818 06/23/18 04:50 05:00 05:10 Temperature Pulse Rate 94 H 101 H 99 H Respiratory 13 19 18 Rate Blood Pressure 209/118 198/115 193/119 O2 Sat by Pulse 99 98 100 Oximetry 06/23/18 06/23/18 06/23/18 05:20 05:30 05:40 Temperature Pulse Rate 101 H 93 H 92 H Respiratory 19 14 16 Rate Blood Pressure 191/111 180/122 182/119 O2 Sat by Pulse 99 99 99 Oximetry 06/23/18 06/23/18 06/23/18 05:50 06:00 06:03 Temperature Pulse Rate 99 H 93 H 100 H Respiratory 15 15 Rate Blood Pressure 175/132 174/119 174/119 O2 Sat by Pulse 99 99 Oximetry 06/23/18 06/23/18 06/23/18 06:10 06:20 06:30 Temperature Pulse Rate 105 H 108 H 113 H Respiratory 12 13 16 Rate Blood Pressure 168/127 146/107 152/100 O2 Sat by Pulse 100 99 98 Oximetry 06/23/1818 06/23/18 06:40 06:50 07:00 Temperature Pulse Rate 107 H 109 H 109 H Respiratory 15 15 18 Rate Blood Pressure 161/106 171/106 157/109 O2 Sat by Pulse 98 98 98 Oximetry 18 18 06/23/18 07:10 07:20 07:30 Temperature Pulse Rate 116 H 116 H 114 H Respiratory 14 11 L 15 Rate Blood Pressure 186/117 154/96 158/92 O2 Sat by Pulse 98 98 98 Oximetry 18 18 10/19/18 07:40 07:50 08:00 Temperature 98.5 F Pulse Rate 109 H 122 H 116 H Respiratory 15 13 13 Rate Blood Pressure 139/92 142/96 163/114 O2 Sat by Pulse 98 97 99 Oximetry 06/23/18 06/23/18 06/23/18 08:02 08:10 08:20 Temperature Pulse Rate 112 H 107 H 102 H Respiratory 20 18 Rate Blood Pressure 163/114 167/107 163/112 O2 Sat by Pulse 100 100 Oximetry 06/23/18 06/23/18 06/23/18 08:30 08:40 08:50 Temperature Pulse Rate 100 H 98 H 99 H Respiratory 15 14 14 Rate Blood Pressure 172/119 167/117 159/114 O2 Sat by Pulse 98 99 99 Oximetry 06/23/18 06/23/18 06/23/18 09:00 09:10 09:20 Temperature Pulse Rate 99 H 109 H 110 H Respiratory 15 12 14 Rate Blood Pressure 165/109 179/120 144/100 O2 Sat by Pulse 100 98 98 Oximetry 06/23/18 06/23/18 06/23/18 09:30 09:40 09:50 Temperature Pulse Rate 104 H 99 H 100 H Respiratory 14 22 13 Rate Blood Pressure 163/104 140/86 136/90 O2 Sat by Pulse 98 99 99 Oximetry 06/23/18 06/23/18 06/23/18 09:57 10:00 10:10 Temperature Pulse Rate 101 H 99 H 98 H Respiratory 15 13 Rate Blood Pressure 136/90 132/86 138/93 O2 Sat by Pulse 98 99 Oximetry 06/23/18 10:20 Temperature Pulse Rate 95 H Respiratory 16 Rate Blood Pressure 129/89 O2 Sat by Pulse 99 Oximetry - General Appearance General appearance: well-developed, well-nourished, appears stated age EENT: PERRL, mucous membranes moist Neck: no JVD, no thyromegaly, no carotid bruit, supple Respiratory: Present: Clear to Ascultation Cardiology: regular, normal heart rate, S1S2, no murmurs Gastrointestinal: normal, normoactive bowel sounds Integumentary: no rash, warm and dry - Lab 06/21/18 13:06 06/23/18 04:23 Most recent lab results Calcium 8.8 mg/dL (8.4-10.2) 06/23/18 04:23 Phosphorus 3.20 mg/dL (2.5-4.5) 06/22/18 Unknown Magnesium 2.50 mg/dL (1.7-2.3) H 06/22/18 Unknown
--- NOTE | 2018-06-23 14:13 | Progress Note ---
Assessment and Plan Assessment and plan: 27 YO Male with HTN(diagnosed 2 weeks ago by checking his blood pressure at [employer] BP machine) presents to ED for evaluation. Pt states that he has experienced chest discomfort and headache over the past 2 days with worsening symptoms over the past 8 hours, as well as dark colored urine which he thinks may be blood clots. Pt transported to ED by his family for further care and evaluation. Pt seen and evaluated in ED and found to have Hypertensive Emergency and initiated on nicardipine drip and admitted to ICU. Pt also found to have evidence of possible Primary Hyperaldosteronism. Pt symptoms improved with therapy, and patient subsequently downgraded to telemetry. Nephrology consulted in ED. (1) Hypertensive emergency without congestive heart failure -now off nicardipine drip, -monitor bp q shift, Prednisone, Sprionolactone, IV hydralazine prn -Start bp control with labatelol, hydralazin -Nephrology input noted (2) Primary hyperaldosteronism -Aldosterone renin ratio, 24 hour VMA level, Thyroid panel, CT abdomen/pelvis to assess for adrenal mass -This is secondary to the noted and persistent hypokalemia (3) Acute Renal Failure secondary to hypertension and vasomotor nephropathy -Nephrology following -Gentle hydration (4) Hypokalemia -Repleted in ED, repeat bmp, (5) DVT prophylaxis Current Visit: Yes Status: Acute Plan to address problem: SCD to BLE While in bed. Transfer to telemetry floor Disposition: If continues to improve can be discharged in am and follow with nephrology outpatient. History Interval history: Patient seen and examined, denies any further chest pain at this time. No nausea , reports a bit of headache. Hospitalist Physical - Physical exam Narrative exam: VITAL SIGNS: Reviewed. GENERAL: The patient appeared well nourished and normally developed. Vital signs as documented. HEAD: No signs of head trauma. EYES: Pupils are equal. Extraocular motions intact. EARS: Hearing grossly intact. MOUTH: Oropharynx is normal. NECK: No adenopathy, no JVD. CHEST: Chest with clear breath sounds bilaterally. No wheezes, rales, or rhonchi. CARDIAC: Regular rate and rhythm. S1 and S2, without murmurs, gallops, or rubs. VASCULAR: No Edema. Peripheral pulses normal and equal in all extremities. ABDOMEN: Soft, without detectable tenderness. No sign of distention. No rebound or guarding, and no masses palpated. Bowel Sounds normal. MUSCULOSKELETAL: Good range of motion of all major joints. Extremities without clubbing, cyanosis or edema. NEUROLOGIC EXAM: Alert and oriented x 3. No focal sensory or strength deficits. Speech normal. Follows commands. PSYCHIATRIC: Mood normal. SKIN: tattoes. - Constitutional Vitals: Temp Pulse Resp BP Pulse Ox 98.5 F 95 H 16 129/89 99 06/23/18 08:00 06/23/18 10:20 06/23/18 10:20 06/23/18 10:20 06/23/18 10:20 General appearance: Present: no acute distress Results - Labs CBC & Chem 7: 06/21/18 13:06 06/23/18 04:23 Labs: Laboratory Last Values WBC 7.8 K/mm3 (4.5-11.0) 06/21/18 13:06 RBC 5.57 M/mm3 (3.65-5.03) H 06/21/18 13:06 Hgb 16.4 gm/dl (11.8-15.2) H 06/21/18 13:06 Hct 45.7 % (35.5-45.6) H 06/21/18 13:06 MCV 82 fl (84-94) L 06/21/18 13:06 MCH 30 pg (28-32) 06/21/18 13:06 MCHC 36 % (32-34) H 06/21/18 13:06 RDW 12.8 % (13.2-15.2) L 06/21/18 13:06 Plt Count 252 K/mm3 (140-440) 06/21/18 13:06 Lymph % (Auto) 23.2 % (13.4-35.0) 06/21/18 13:06 [place] % (Auto) 5.3 % (0.0-7.3) 06/21/18 13:06 Eos % (Auto) 0.6 % (0.0-4.3) 06/21/18 13:06 Baso % (Auto) 0.7 % (0.0-1.8) 06/21/18 13:06 Lymph # 1.8 K/mm3 (1.2-5.4) 06/21/18 13:06 [place] # 0.4 K/mm3 (0.0-0.8) 06/21/18 13:06 Eos # 0.0 K/mm3 (0.0-0.4) 06/21/18 13:06 Baso # 0.1 K/mm3 (0.0-0.1) 06/21/18 13:06 Seg Neutrophils % 70.2 % (40.0-70.0) H 06/21/18 13:06 Seg Neutrophils # 5.5 K/mm3 (1.8-7.7) 06/21/18 13:06 Sodium 134 mmol/L (137-145) L 06/23/18 04:23 Potassium 3.3 mmol/L (3.6-5.0) L 06/23/18 04:23 Chloride 96.6 mmol/L (98-107) L 06/23/18 04:23 Carbon Dioxide 26 mmol/L (22-30) 06/23/18 04:23 Anion Gap 15 mmol/L 06/23/18 04:23 BUN 23 mg/dL (9-20) H 06/23/18 04:23 Creatinine 1.8 mg/dL (0.8-1.5) H 06/23/18 04:23 Estimated GFR 56 ml/min 06/23/18 04:23 BUN/Creatinine Ratio 13 % 06/23/18 04:23 Glucose 98 mg/dL (75-100) 06/23/18 04:23 POC Glucose 113 (70-105) H 06/21/18 17:02 Calcium 8.8 mg/dL (8.4-10.2) 06/23/18 04:23 Phosphorus 3.20 mg/dL (2.5-4.5) 06/22/18 Unknown Magnesium 2.50 mg/dL (1.7-2.3) H 06/22/18 Unknown Total Bilirubin 0.50 mg/dL (0.1-1.2) 06/21/18 13:06 AST 24 units/L (5-40) 06/21/18 13:06 ALT 18 units/L (7-56) 06/21/18 13:06 Alkaline Phosphatase 120 units/L (35-129) 06/21/18 13:06 Total Creatine Kinase 149 units/L (55-170) 06/21/18 13:06 Troponin T < 0.010 ng/mL (0.00-0.029) 06/21/18 21:31 Total Protein 7.8 g/dL (6.3-8.2) 06/21/18 13:06 Albumin 4.1 g/dL (3.9-5) 06/21/18 13:06 Albumin/Globulin Ratio 1.1 % 06/21/18 13:06 TSH 1.790 mlU/mL (0.270-4.200) 06/21/18 15:42 Free T4 1.61 ng/dL (0.76-1.46) H 06/21/18 15:42 Urine Color Yellow (Yellow) 06/21/18 15:59 Urine Turbidity Slightly-cloudy (Clear) 06/21/18 15:59 Urine pH 7.0 (5.0-7.0) 06/21/18 15:59 Ur Specific [place] 1.015 (1.003-1.030) 06/21/18 15:59 Urine Protein >500 mg/dL (Negative) 06/21/18 15:59 Urine Glucose (UA) 50 mg/dL (Negative) 06/21/18 15:59 Urine Ketones Neg mg/dL (Negative) 06/21/18 15:59 Urine Blood Mod (Negative) 06/21/18 15:59 Urine Nitrite Neg (Negative) 06/21/18 15:59 Urine Bilirubin Neg (Negative) 06/21/18 15:59 Urine Urobilinogen < 2.0 mg/dL (<2.0) 06/21/18 15:59 Ur Leukocyte Esterase Neg (Negative) 06/21/18 15:59 Urine WBC (Auto) 1.0 /HPF (0.0-6.0) 06/21/18 15:59 Urine RBC (Auto) > 182.0 /HPF (0.0-6.0) 06/21/18 15:59 Urine Opiates Screen Presumptive negative 06/21/18 15:59 Urine Methadone Screen Presumptive negative 06/21/18 15:59 Ur Barbiturates Screen Presumptive negative 06/21/18 15:59 Ur Phencyclidine Scrn Presumptive negative 06/21/18 15:59 Ur Amphetamines Screen Presumptive negative 06/21/18 15:59 U Benzodiazepines Scrn Presumptive negative 10/17/18 15:59 Urine Cocaine Screen Presumptive negative 06/21/18 15:59 U Marijuana (THC) Screen Presumptive positive 06/21/18 15:59 Drugs of Abuse Note Disclamer 06/21/18 15:59
[2018-06-23 14:32] LABS: Potassium, Urine 12.07 mmol/L
[2018-06-23 14:57] LABS: Creatinine 24 Hour,Urine 1.5 (0.8-2.8); Potassium 24 Hour,Urine 31.4 (25-125)
[2018-06-24] MEDS: TYLENOL PO PRN ×5 (00:27→21:47)
[2018-06-24] MEDS: APRESOLINE IV SCH ×3 (00:31→09:20)
--- NOTE | 2018-06-24 02:23 | Consultation ---
PULMONARY CRITICAL CARE CONSULTATION CONSULTING PHYSICIAN: Dr. Bland. REASON FOR CONSULTATION: Hypertensive emergency. CHIEF COMPLAINT AND HISTORY OF PRESENT ILLNESS: The patient is a 27-year-old -[place] male with past medical history he had denied any came in complaining of chest pain that began the day before coming in. He also complained of headaches. He denied neck pain, fevers, or chills. He denied any hallucinations or altered mental status, otherwise. In the ER, blood pressure was found to be significantly elevated. He also mentioned that he had noticed some blood clots in his urine about a couple of days before presentation. He denied any dysuria in association with that. He denied any fevers. Denied any chills. Denied any instrumentation to his penis or any other urological problems. Again, evaluation in the Emergency Room revealed systolic blood pressures as high as 236 and diastolics as high as 178. He was admitted with hypertensive emergency diagnosis and started on a Cardene drip. When I stopped by to see him, he was resting in bed. Blood pressure was looking a little bit better. He stated he is no longer noticing any hematuria. He denied any history of nausea or vomiting. He denied any new rash or lesion on his body. He denied any camping or any animal or insect bites. He denies any history of tobacco use or abuse whatsoever. As far as he knows, there is no other person in the family with similar blood pressure or renal issues. That is as much of the history of presentation as I have. PAST MEDICAL HISTORY: Denied, but in retrospect, he thinks he had been told he had hypertension in the past. PAST SURGICAL HISTORY: Denied. MEDICATIONS: Medications he was on at the time I stopped by to see him were reviewed. Pertinent medications included the following: Tylenol 650 mg p.o. q.4 hours p.r.n. mild pain and fever, albuterol 2.5 mg nebulized q. 4 hours p.r.n. shortness of breath, labetalol 300 mg p.o. t.i.d. schedule, Zofran 4 mg IV q.8 hours p.r.n. nausea and vomiting, and Aldactone 50 mg p.o. b.i.d. ALLERGIES: No known drug allergies. DIET: Well-built gentleman. Denies acute weight loss or gain in the preceding few weeks to months. FAMILY AND SOCIAL HISTORY: Lives in the community. Denies alcohol, tobacco, or illicit drug use or abuse. Denied any prescription drug use or abuse. REVIEW OF SYSTEMS: No loss of consciousness. No new onset of seizures. No new onset focal weakness. Denied gross hematochezia or melena. Denied any heat or cold intolerance, polydipsia, or polyuria. Denied any focal weakness or signs and symptoms of mononeuritis multiplex type syndrome. Denied polydipsia or polyuria. Denied heat or cold intolerance. Complete 13-system review of systems was obtained. Pertinent positives and/or negatives are as in the body of the history above, otherwise they are noncontributory. PHYSICAL EXAMINATION: VITAL SIGNS: At presentation in the Emergency Room, there was low grade fever, temperature 99.0 degrees Fahrenheit, pulse of 98, respiratory rate of 16, blood pressure 236/178, oxygen sats were 99%, inspired oxygen concentration at that time was not recorded. When I stopped by to see him, he was 98% on room air. GENERAL: He is a well-built young -[place] male, normocephalic and atraumatic, talking in full sentences without significant respiratory distress. HEAD, EYES, EARS, NOSE, AND THROAT: He was anicteric, no conjunctival erythema. Oropharynx was a Mallampati 2. Oropharynx was moist. NECK: No gross jugular venous distention. Grossly, no palpable lymph nodes in the supraclavicular or submandibular lymph node chains. PULMONARY: Auscultations of both lung park were unremarkable. Lungs were clear bilaterally. CARDIOVASCULAR: Heart sounds 1 and 2 were heard at the time of my evaluation, regular in rate and rhythm without rubs or murmurs. ABDOMEN: Soft, full, bowel sounds are positive, nontender. No costovertebral angle tenderness also. EXTREMITIES: Without overt digital clubbing, no cyanosis, no pedal edema. Dorsalis pedis pulses were palpable bilaterally. NEUROLOGIC: Pupils were equal and round, about 3-4 mm, reactive to light. Extraocular muscle movements were intact. He moved all 4 extremities spontaneously. SKIN: The skin was of normal turgor without cellulitis or rash. PSYCHIATRIC: Mood was appropriate. Affect was normal. He had intact judgment and insight. LABORATORY DATA: From my review were as follows: Admission white count 7800, hemoglobin 16.4, hematocrit 45.7, platelet count 252. No manual differential. Serum sodium was 133, potassium 2.7, chloride 87, bicarbonate 32, BUN 17, creatinine 1.4, and glucose was 108. TSH within normal limits. Urinalysis, moderate blood, negative for nitrites and leukocyte esterase. Urine drug screen was presumptive positive for THC. No microbiology studies. A CT scan of the abdomen and pelvis was done. Lung windows were unremarkable. Overall, it was described as an unremarkable CT of the abdomen and pelvis except for a 2 cm right renal cyst. A CT of the head was read as normal for age. Echocardiogram is pending. 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 He does not give a history that is consistent particularly with significant vascularities, but again, I cannot rule that out. The assessment will be as follows: 1. Uncontrolled hypertension with hypertensive emergency. 2. Gross hematuria. 3. Hypokalemia in the setting described above could well be a manifestation of hyperaldosteronism. 4. Mild hyponatremia. 5. Chest pain. 6. Headache. 7. Likely hemoconcentration with elevated serum hemoglobin. 8. Medication noncompliance. PLAN: The CT imaging does not seem to demonstrate anything suspicious for an adrenaloma and I do note, however, the cyst reported in the kidneys. I will defer to the supervisor liquefaction in terms of initial management and for the diagnosis/testing. In the meantime, we will schedule him on IV hydralazine 10 mg IV q.4 hour schedule with hold parameters for systolic blood pressures less than 140 mmHg while up-titrating other p.o. medications. He is currently on a Cardene drip at about 3 mg per hour. We will go ahead and shut that off once we have started the hydralazine if the blood pressure responds appropriately. We will take care to follow him clinically during this titration to ensure there is no adverse effect with blood pressure lowering. Potassium will be replaced. He has been started on Aldactone, which should also help with the serum potassium levels. Cardiology evaluation should be in order. A 2D echocardiogram, I believe, has been ordered and will be followed. He will be added on DVT prophylaxis as well as GI prophylaxis. Flu and pneumonia vaccination will be addressed per protocol. Further interventions will depend on his response to the above-mentioned therapy. Thank you very much for the consult. We will follow along. We will make further recommendations as picture progresses/becomes clearer. He is critically ill on life-sustaining interventions including the nicardipine drip at high risk for deterioration in the cardiovascular and neurologic systems including the risk of . This time, I have spent about 35-40 minutes of critical care time without overlap. JOB# [id number] VELMA/JANAE [place]
[2018-06-24] MEDS: APRESOLINE PO SCH ×3 (05:49→21:45)
[2018-06-24 06:46] LABS: Calcium 8.7 mg/dL (8.4-10.2)
[2018-06-24] MEDS: PEPCID PO SCH (09:16)
[2018-06-24] MEDS: ALDACTONE PO SCH ×2 (09:16→21:46)
[2018-06-24] MEDS: NORMODYNE PO SCH ×3 (09:17→21:44)
[2018-06-24] MEDS: SODIUM CHLORIDE FLUSH SYRINGE 10 ML IV SCH ×2 (09:17→22:05)
[2018-06-24] MEDS: HEPARIN SUB-Q SCH ×2 (09:18→21:48)
--- NOTE | 2018-06-24 09:26 | Progress Note ---
Assessment and Plan Hypertensive emergency Atypical chest pain Acute on chronic renal insufficiency Hypokalemia Medical noncompliance Recommend BP is controlled with current regimen BP medications has normal LV function and moderate left ventricular hypertrophy treat medically may be discharged from a cardiovascular patient advised to follow [facility] Subjective Date of service: 06/24/18 Principal diagnosis: Hypertensive Emergency; Chest Pain; Hypokalemia; Headache Interval history: pthas no chest pain but mild headache Objective Vital Signs Temp Pulse Pulse Resp Resp BP Pulse Ox 06/24/18 08:25 97.7 F 103 H 16 158/109 98 06/24/18 05:52 98 H 134/84 06/24/18 05:49 98 H 134/84 06/24/18 04:00 95 H 06/24/18 00:31 108 H 129/79 06/24/18 00:15 98.3 F 108 H 18 129/79 97 06/23/18 22:00 20 06/23/18 21:57 99 06/23/18 21:15 108 H 147/106 06/23/18 21:14 108 H 147/106 06/23/18 21:11 108 H 147/106 06/23/18 21:10 20 06/23/18 21:08 108 H 147/101 06/23/18 20:00 98 H 18 100 06/23/18 17:12 98.0 F 93 H 18 143/96 96 06/23/18 16:40 144/95 06/23/18 16:30 92 H 14 147/101 97 06/23/18 16:20 93 H 11 L 147/101 97 06/23/18 16:10 96 H 16 144/94 06/23/18 16:00 98.0 F 92 H 90 16 143/94 100 06/23/18 15:50 89 14 134/89 06/23/18 15:40 90 14 138/88 06/23/18 15:30 91 H 14 129/89 06/23/18 15:20 95 H 15 134/84 87 06/23/18 15:10 94 H 16 129/84 81 L 06/23/18 15:00 102 H 14 125/74 98 06/23/18 14:50 93 H 14 134/78 98 06/23/18 14:40 98 H 14 148/90 97 06/23/18 14:30 96 H 14 145/95 18 14:22 98.8 F 06/23/18 14:20 94 H 18 144/98 98 18 14:16 91 H 153/109 18 14:15 90 153/109 18 14:10 93 H 12 153/109 97 06/23/18 14:00 94 H 18 157/116 96 06/23/18 13:50 92 H 13 156/106 97 18 13:41 96 H 16 138/90 18 13:31 104 H 13 144/93 18 13:21 105 H 18 144/93 06/23/18 13:10 100 H 13 144/93 97 06/23/18 13:00 107 H 13 147/101 98 06/23/18 12:50 99 H 13 138/90 99 06/23/18 12:40 94 H 15 143/89 100 18 12:30 93 H 15 140/88 99 18 12:20 96 H 13 142/91 98 06/23/18 12:11 91 H 16 157/99 97 06/23/18 12:00 102 H 109 H 17 131/88 100 18 11:50 96 H 16 131/88 100 18 11:40 101 H 18 147/89 99 18 11:30 101 H 16 140/96 99 18 11:20 98 H 14 139/94 98 18 11:10 100 H 12 135/89 99 18 11:00 105 H 15 130/85 97 18 10:50 99 H 21 120/70 100 18 10:40 99 H 22 125/74 99 18 10:30 104 H 15 135/90 98 18 10:20 95 H 16 129/89 99 18 10:10 98 H 13 138/93 99 18 10:00 99 H 15 132/86 98 18 09:57 101 H 136/90 06/23/18 09:50 100 H 13 136/90 99 18 09:40 99 H 22 140/86 99 18 09:30 104 H 14 163/104 98 - Physical Examination General: No Apparent Distress HEENT: Positive: PERRL, Normocephaly, Mucus Membranes Moist Neck: Positive: neck supple, trachea midline Cardiac: Positive: Reg Rate and Rhythm Lungs: Positive: clear to auscultation Neuro: Positive: Grossly Intact Abdomen: Positive: Soft. Negative: Tender Skin: Positive: Clear. Negative: Rash, Wound Musculoskeletal: No Pain Extremities: Absent: edema - Labs and Meds Comprehensive Metabolic Panel 06/24/18 Range/Units 05:24 Sodium 135 L (137-145) mmol/L Potassium 3.0 L (3.6-5.0) mmol/L Chloride 98.2 (98-107) mmol/L Carbon Dioxide 25 (22-30) mmol/L BUN 20 (9-20) mg/dL Creatinine 2.0 H (0.8-1.5) mg/dL Glucose 92 (75-100) mg/dL Calcium 8.7 (8.4-10.2) mg/dL - Imaging and Cardiology EKG: report reviewed, image reviewed Echo: pending - EKG Sinus rhythms and dysrhythmias: sinus rhythm Chamber hypertrophy or enlargement: left ventricular hypertro Repolarization changes or abnormalities: repolarization abn secondary to ventricular hypertrophy
--- NOTE | 2018-06-24 12:12 | Progress Note ---
Assessment and Plan Impression : * Acute renal failure * Accelerated hypertension * Hypokalemia highly suspicious for hyperaldosteronism, * Elevated red blood cell count possibly could be due to dehydration * Hyperglycemia Recommendations : * His blood pressure seems under control with current antihypertensive regimen * Continue current antihypertensive meds * Follow up results of secondary hypertension w/u * check renal artery doppler * CT scan of abdomen did not show any adrenal lesion * Okay to discharge patient home from renal standpoint. He will however require close nephrology follow-up. Patient advised Subjective Date of service: 06/24/18 Principal diagnosis: Hypertensive Emergency; Chest Pain; Hypokalemia; Headache Interval history: Patient is comfortable today. Anxious to go home. Came out of ICU yesterday. Objective - Vital Signs Vital signs: Vital Signs - 12hr 06/24/18 06/24/18 06/24/18 00:15 00:31 04:00 Temperature 98.3 F Pulse Rate 108 H 108 H 95 H Respiratory 18 Rate Blood Pressure 129/79 129/79 O2 Sat by Pulse 97 Oximetry 06/24/18 06/24/18 06/24/18 05:49 05:52 08:25 Temperature 97.7 F Pulse Rate 98 H 98 H 103 H Respiratory 16 Rate Blood Pressure 134/84 134/84 158/109 O2 Sat by Pulse 98 Oximetry 06/24/18 09:40 Temperature Pulse Rate Respiratory Rate Blood Pressure O2 Sat by Pulse 95 Oximetry - General Appearance General appearance: well-developed, well-nourished, appears stated age EENT: PERRL, mucous membranes moist Neck: no JVD, no thyromegaly, no carotid bruit, supple Respiratory: Present: Clear to Ascultation Cardiology: regular, normal heart rate, S1S2, no murmurs Gastrointestinal: normal, normoactive bowel sounds Integumentary: no rash, other (no edema) - Lab 06/21/18 13:06 06/24/18 05:24 Most recent lab results Calcium 8.7 mg/dL (8.4-10.2) 06/24/18 05:24 Phosphorus 3.20 mg/dL (2.5-4.5) 06/22/18 Unknown Magnesium 2.50 mg/dL (1.7-2.3) H 06/22/18 Unknown Urine Creatinine 57.0 mg/dL (0.1-20.0) H 06/23/18 12:30
[2018-06-24] MEDS: K-DUR PO SCH ×3 (12:19→22:04)
--- NOTE | 2018-06-24 15:31 | Progress Note ---
Assessment and Plan Assessment and plan: Hypertensive emergency without congestive heart failure -off nicardipine drip, -BP controlled on current antihypertensives -Renal artery uss pending Acute Renal Failure secondary to hypertension and vasomotor nephropathy -Nephrology following -Gentle hydration Hypokalemia, probably secondary to suspected primary hypoaldosteronism -Continue potassium supplementation and monitor level -CT abdomen/pelvis negative for adrenal lesion DVT prophylaxis -on Heparin Disposition: For possible discharge in 24-48 hours if clinically stable History Interval history: Patient has no new complaints. He denies nausea or vomiting. Hospitalist Physical - Constitutional Vitals: Temp Pulse Resp BP Pulse Ox 98.3 F 90 16 144/96 96 06/24/18 12:17 06/24/18 12:17 06/24/18 12:17 06/24/18 12:17 06/24/18 12:17 General appearance: Present: no acute distress - EENT Eyes: Present: PERRL, EOM intact ENT: hearing intact, clear oral mucosa - Neck Neck: Present: supple - Respiratory Respiratory effort: normal Respiratory: bilateral: CTA - Cardiovascular Rhythm: regular Heart Sounds: Present: S1 & S2 - Extremities Extremities: No edema - Abdominal General gastrointestinal: soft, non-tender, non-distended, normal bowel sounds - Neurologic Neurologic: CNII-XII intact Results - Labs CBC & Chem 7: 06/21/18 13:06 06/24/18 05:24 Labs: Laboratory Last Values WBC 7.8 K/mm3 (4.5-11.0) 06/21/18 13:06 RBC 5.57 M/mm3 (3.65-5.03) H 06/21/18 13:06 Hgb 16.4 gm/dl (11.8-15.2) H 06/21/18 13:06 Hct 45.7 % (35.5-45.6) H 06/21/18 13:06 MCV 82 fl (84-94) L 06/21/18 13:06 MCH 30 pg (28-32) 06/21/18 13:06 MCHC 36 % (32-34) H 06/21/18 13:06 RDW 12.8 % (13.2-15.2) L 06/21/18 13:06 Plt Count 252 K/mm3 (140-440) 06/21/18 13:06 Lymph % (Auto) 23.2 % (13.4-35.0) 06/21/18 13:06 [place] % (Auto) 5.3 % (0.0-7.3) 06/21/18 13:06 Eos % (Auto) 0.6 % (0.0-4.3) 06/21/18 13:06 Baso % (Auto) 0.7 % (0.0-1.8) 06/21/18 13:06 Lymph # 1.8 K/mm3 (1.2-5.4) 06/21/18 13:06 [place] # 0.4 K/mm3 (0.0-0.8) 06/21/18 13:06 Eos # 0.0 K/mm3 (0.0-0.4) 06/21/18 13:06 Baso # 0.1 K/mm3 (0.0-0.1) 06/21/18 13:06 Seg Neutrophils % 70.2 % (40.0-70.0) H 06/21/18 13:06 Seg Neutrophils # 5.5 K/mm3 (1.8-7.7) 06/21/18 13:06 Sodium 135 mmol/L (137-145) L 06/24/18 05:24 Potassium 3.0 mmol/L (3.6-5.0) L 06/24/18 05:24 Chloride 98.2 mmol/L (98-107) 06/24/18 05:24 Carbon Dioxide 25 mmol/L (22-30) 06/24/18 05:24 Anion Gap 15 mmol/L 06/24/18 05:24 BUN 20 mg/dL (9-20) 06/24/18 05:24 Creatinine 2.0 mg/dL (0.8-1.5) H 06/24/18 05:24 Estimated GFR 50 ml/min 06/24/18 05:24 BUN/Creatinine Ratio 10 % 06/24/18 05:24 Glucose 92 mg/dL (75-100) 06/24/18 05:24 POC Glucose 113 (70-105) H 06/21/18 17:02 Calcium 8.7 mg/dL (8.4-10.2) 06/24/18 05:24 Phosphorus 3.20 mg/dL (2.5-4.5) 06/22/18 Unknown Magnesium 2.50 mg/dL (1.7-2.3) H 06/22/18 Unknown Total Bilirubin 0.50 mg/dL (0.1-1.2) 06/21/18 13:06 AST 24 units/L (5-40) 06/21/18 13:06 ALT 18 units/L (7-56) 06/21/18 13:06 Alkaline Phosphatase 120 units/L (35-129) 06/21/18 13:06 Total Creatine Kinase 149 units/L (55-170) 06/21/18 13:06 Troponin T < 0.010 ng/mL (0.00-0.029) 06/21/18 21:31 Total Protein 7.8 g/dL (6.3-8.2) 06/21/18 13:06 Albumin 4.1 g/dL (3.9-5) 06/21/18 13:06 Albumin/Globulin Ratio 1.1 % 06/21/18 13:06 TSH 1.790 mlU/mL (0.270-4.200) 06/21/18 15:42 Free T4 1.61 ng/dL (0.76-1.46) H 06/21/18 15:42 Urine Color Yellow (Yellow) 06/21/18 15:59 Urine Turbidity Slightly-cloudy (Clear) 06/21/18 15:59 Urine pH 7.0 (5.0-7.0) 06/21/18 15:59 Ur Specific [place] 1.015 (1.003-1.030) 06/21/18 15:59 Urine Protein >500 mg/dL (Negative) 06/21/18 15:59 Urine Glucose (UA) 50 mg/dL (Negative) 06/21/18 15:59 Urine Ketones Neg mg/dL (Negative) 06/21/18 15:59 Urine Blood Mod (Negative) 06/21/18 15:59 Urine Nitrite Neg (Negative) 06/21/18 15:59 Urine Bilirubin Neg (Negative) 06/21/18 15:59 Urine Urobilinogen < 2.0 mg/dL (<2.0) 06/21/18 15:59 Ur Leukocyte Esterase Neg (Negative) 06/21/18 15:59 Urine WBC (Auto) 1.0 /HPF (0.0-6.0) 06/21/18 15:59 Urine RBC (Auto) > 182.0 /HPF (0.0-6.0) 06/21/18 15:59 Urine Total Volume 2600 06/23/18 12:30 Urine Creatinine 57.0 mg/dL (0.1-20.0) H 06/23/18 12:30 Ur Creatinine 24 Hour 1.5 (0.8-2.8) 06/23/18 12:30 Urine Potassium 12.07 mmol/L 06/23/18 12:30 Ur Potassium 24 Hour 31.4 (25-125) 06/23/18 12:30 Urine Opiates Screen Presumptive negative 06/21/18 15:59 Urine Methadone Screen Presumptive negative 06/21/18 15:59 Ur Barbiturates Screen Presumptive negative 06/21/18 15:59 Ur Phencyclidine Scrn Presumptive negative 06/21/18 15:59 Ur Amphetamines Screen Presumptive negative 06/21/18 15:59 U Benzodiazepines Scrn Presumptive negative 06/21/18 15:59 Urine Cocaine Screen Presumptive negative 06/21/18 15:59 U Marijuana (THC) Screen Presumptive positive 06/21/18 15:59 Drugs of Abuse Note Disclamer 06/21/18 15:59
--- NOTE | 2018-06-25 05:36 | Progress Note ---
Assessment and Plan Uncontrolled hypertension with hypertensive emergency. Gross hematuria. Hypokalemia in the setting described above could well be a manifestation of hyperaldosteronism. Mild hyponatremia. Chest pain. Headache. Likely hemoconcentration with elevated serum hemoglobin. Medication noncompliance. -Continue blood pressure medications -Discussed need for medical compliance -Increase activity -Life style modifications, dietary counselling -Discharge planning Subjective Date of service: 06/25/18 Principal diagnosis: Hypertensive Emergency; Chest Pain; Hypokalemia; Headache Interval history: Patient is seen today for: Hypertensive Emergency; Chest Pain; Hypokalemia; Headache Seen and examined at bedside; 24-hour events reviewed; nursing and respiratory care staff consulted; Much improved, wants to know when he can go home Objective - Exam Narrative Exam: VITAL SIGNS: Reviewed. GENERAL: The patient appeared well nourished and normally developed. Vital signs as documented. HEAD: No signs of head trauma. EYES: Pupils are equal. Extraocular motions intact. EARS: Hearing grossly intact. MOUTH: Oropharynx is normal. NECK: No adenopathy, no JVD. CHEST: Chest with clear breath sounds bilaterally. No wheezes, rales, or rhonchi. CARDIAC: Regular rate and rhythm. S1 and S2, without murmurs, gallops, or rubs. VASCULAR: No Edema. Peripheral pulses normal and equal in all extremities. ABDOMEN: Soft, without detectable tenderness. No sign of distention. No rebound or guarding, and no masses palpated. Bowel Sounds normal. MUSCULOSKELETAL: Good range of motion of all major joints. Extremities without clubbing, cyanosis or edema. NEUROLOGIC EXAM: Alert and oriented x 3. No focal sensory or strength deficits. Speech normal. Follows commands. PSYCHIATRIC: Mood normal. SKIN: tattoed. Vital Signs - 12hr 06/24/18 06/24/18 06/24/18 19:19 20:00 21:44 Temperature 97.5 F L Pulse Rate 90 98 H Respiratory 18 Rate Respiratory Rate [Chest] Blood Pressure 151/100 151/100 O2 Sat by Pulse Oximetry 06/24/18 06/24/18 06/24/18 21:45 21:46 21:47 Temperature Pulse Rate 98 H 98 H Respiratory 18 Rate Respiratory Rate [Chest] Blood Pressure 151/100 151/100 O2 Sat by Pulse Oximetry 06/24/18 06/24/18 06/25/18 22:00 23:47 04:00 Temperature 97.6 F Pulse Rate 93 H Respiratory 18 18 Rate Respiratory 18 Rate [Chest] Blood Pressure 151/108 O2 Sat by Pulse 98 Oximetry 06/25/18 04:41 Temperature 98.1 F Pulse Rate Respiratory 18 Rate Respiratory Rate [Chest] Blood Pressure 167/114 O2 Sat by Pulse Oximetry CBC and BMP: 06/25/18 05:07 06/25/18 05:07 Abnormal lab findings: Abnormal Labs 06/21/18 06/21/18 06/21/18 13:06 13:06 13:06 RBC 5.57 H Hgb 16.4 H Hct 45.7 H MCV 82 L MCHC 36 H RDW 12.8 L Seg Neutrophils % 70.2 H Sodium 133 L 133 L Potassium 2.7 L* 2.7 L* Chloride 87.7 L 87.4 L Carbon Dioxide 33 H 32 H BUN Creatinine Glucose 106 H 108 H POC Glucose Magnesium Free T4 Urine Creatinine 06/21/18 06/21/18 06/21/18 15:42 17:02 21:40 RBC Hgb Hct MCV MCHC RDW Seg Neutrophils % Sodium 134 L Potassium 3.0 L Chloride 91.3 L Carbon Dioxide BUN 22 H Creatinine 1.7 H Glucose 149 H POC Glucose 113 H Magnesium Free T4 1.61 H Urine Creatinine 06/22/18 06/22/18 06/23/18 Unknown Unknown 00:33 RBC Hgb Hct MCV MCHC RDW Seg Neutrophils % Sodium 133 L 133 L Potassium 2.7 L* Chloride 89.8 L 95.4 L Carbon Dioxide BUN 27 H Creatinine 1.8 H Glucose 113 H 110 H POC Glucose Magnesium 2.50 H Free T4 Urine Creatinine 06/23/18 06/23/18 06/24/18 04:23 12:30 05:24 RBC Hgb Hct MCV MCHC RDW Seg Neutrophils % Sodium 134 L 135 L Potassium 3.3 L 3.0 L Chloride 96.6 L Carbon Dioxide BUN 23 H Creatinine 1.8 H 2.0 H Glucose POC Glucose Magnesium Free T4 Urine Creatinine 57.0 H
[2018-06-25 05:53] LABS: Basophils % (Auto) 0.9 % (0.0-1.8); Eosinophils # (Auto) 0.1 K/mm3 (0.0-0.4); Eosinophils % (Auto) 1.1 % (0.0-4.3); Hematocrit 34.7 % (35.5-45.6); Hemoglobin 12.5 gm/dl (11.8-15.2); Lymphocytes # (Auto) 1.3 K/mm3 (1.2-5.4); Lymphocytes % (Auto) 25.7 % (13.4-35.0); Mean Corpuscular HGB Conc 36 % (32-34); Mean Corpuscular Hemoglobin 30 pg (28-32); Mean Corpuscular Volume 84 fl (84-94); Monocytes # (Auto) 0.4 K/mm3 (0.0-0.8); Monocytes % (Auto) 8.1 % (0.0-7.3); Platelet Count 223 K/mm3 (140-440); Red Blood Count 4.13 M/mm3 (3.65-5.03); Red Cell Distribution Width 13.5 % (13.2-15.2)
[2018-06-25] MEDS: APRESOLINE PO SCH ×2 (06:05→14:29)
[2018-06-25] MEDS: TYLENOL PO PRN (06:06)
[2018-06-25] MEDS ORDERED: K-DUR PO SCH (09:00)
[2018-06-25] MEDS: ALDACTONE PO SCH (09:05)
[2018-06-25] MEDS: NORMODYNE PO SCH ×2 (09:06→13:31)
[2018-06-25] MEDS: HEPARIN SUB-Q SCH (09:23)
--- NOTE | 2018-06-25 11:13 | Progress Note ---
Assessment and Plan Impression : * Acute renal failure * Accelerated hypertension * Hypokalemia highly suspicious for hyperaldosteronism, * Elevated red blood cell count possibly could be due to dehydration * Hyperglycemia Recommendations : * His blood pressure seems high again today. * Add ARB to his antihypertensive regimen * His renal function seems to have stabilized * 24-hour urine potassium is 31. However this is in the face of Aldactone being on board * Patient refused to have renal artery doppler . Awaiting results of other workup for secondary hypertension * CT scan of abdomen did not show any adrenal lesion * Okay to discharge patient home from renal standpoint. He will however require close nephrology follow-up. Patient advised Subjective Date of service: 06/25/18 Principal diagnosis: Hypertensive Emergency; Chest Pain; Hypokalemia; Headache Interval history: Patient is comfortable today. Anxious to go home. Patient refused to have his renal artery Doppler done. Objective - Vital Signs Vital signs: Vital Signs - 12hr 06/24/18 06/25/18 06/25/18 23:47 04:00 04:41 Temperature 97.6 F 98.1 F Pulse Rate 93 H Respiratory 18 18 Rate Blood Pressure 151/108 167/114 O2 Sat by Pulse Oximetry 06/25/18 06/25/18 06/25/18 06:05 06:06 07:52 Temperature 97.9 F Pulse Rate 106 H 106 H Respiratory 20 18 Rate Blood Pressure 167/114 163/111 O2 Sat by Pulse 98 Oximetry 06/25/18 06/25/18 09:05 09:06 Temperature Pulse Rate Respiratory Rate Blood Pressure 157/103 158/103 O2 Sat by Pulse Oximetry - General Appearance General appearance: well-developed, well-nourished, appears stated age EENT: PERRL, mucous membranes moist Neck: no JVD, no thyromegaly, no carotid bruit, supple Respiratory: Present: Clear to Ascultation Cardiology: regular, normal heart rate, S1S2, no murmurs Gastrointestinal: normal, normoactive bowel sounds Integumentary: no rash, other - Lab 06/25/18 05:07 06/25/18 05:07 Most recent lab results Calcium 9.0 mg/dL (8.4-10.2) 06/25/18 05:07 Phosphorus 3.20 mg/dL (2.5-4.5) 06/22/18 Unknown Magnesium 1.90 mg/dL (1.7-2.3) 06/25/18 05:07 Urine Creatinine 57.0 mg/dL (0.1-20.0) H 06/23/18 12:30
--- NOTE | 2018-06-25 12:40 | Discharge Summary ---
Providers - Providers Date of Admission: 06/21/18 16:23 Date of discharge: 06/25/18 Attending physician: GALEN WILLS 06/21/18 17:55 Consult to Physician [CONS] Routine Comment: Consulting Provider: MICAELA HOLDEN Physician Instructions: Reason For Exam: Hypertensive chacha. suspected hyperaldosteronism 06/21/18 21:08 Consult to Physician [CONS] Routine Comment: Dr. Baires notified of patient @ [id number] Consulting Provider: GUI FUENTES Physician Instructions: Reason For Exam: hypertensive emergency on nicardipine drip 06/22/18 08:29 Consult to Physician [CONS] Routine Comment: Consulting Provider: SUSHIL SALES Physician Instructions: Reason For Exam: chest pain, hypertensive urgency Primary care physician: DIRECT MARKETING ANALYST Hospitalization Reason for admission: Hypertensive emergency without congestive heart failure Condition: Fair Hospital course: FINAL DIAGNOSIS -Hypertensive emergency without congestive heart failure, improved -Acute Renal Failure secondary to hypertension and vasomotor nephropathy, improved -Hypokalemia, probably secondary to suspected primary hyperaldosteronism, repleted -Hypermagnesemia, resolved Patient was admitted to the ICU and placed on nicardipine drip. Thereafter. His blood pressure stabilized and he was started on oral antihypertensives while the nicardipine drip was titrated off. He also received both IV and potassium supplementations as well as IV fluid for the renal failure. He was later transferred to the acute medicine floor for continued management. His hypokalemia was suspected to be due to primary hypoaldosteronism for which he was started on Aldactone. Subsequently, he improved clinically and he was then deemed stable for discharge with clinic follow-up. There was also plan for the patient to have renal artery ultrasound to assess for renal artery stenosis, however he declined. This can then be done on outpatient basis. He will also have follow-up labs during clinic visit. Disposition: -01 TO HOME OR SELFCARE Time spent for discharge: 35 minutes Core Measure Documentation - Palliative Care Palliative Care/ Comfort Measures: Not Applicable - Core Measures Any of the following diagnoses?: none Exam - Constitutional Vitals: Temp Pulse Resp BP Pulse Ox 97.9 F 106 H 18 158/103 98 06/25/18 07:52 06/25/18 07:52 06/25/18 07:52 06/25/18 09:06 06/25/18 07:52 General appearance: Present: no acute distress, well-nourished - EENT Eyes: Present: PERRL, EOM intact ENT: hearing intact, clear oral mucosa - Neck Neck: Present: supple, normal ROM - Respiratory Respiratory effort: normal Respiratory: bilateral: CTA - Cardiovascular Rhythm: regular Heart Sounds: Present: S1 & S2. Absent: rub, click - Extremities Extremities: pulses symmetrical, No edema Peripheral Pulses: within normal limits - Abdominal General gastrointestinal: Present: soft, non-tender, non-distended, normal bowel sounds - Integumentary Integumentary: Present: clear, warm, dry - Musculoskeletal Musculoskeletal: gait normal, strength equal bilaterally - Psychiatric Psychiatric: appropriate mood/affect, intact judgment & insight - Neurologic Neurologic: CNII-XII intact, moves all extremities Plan Follow up with: [facility] [Provider Group] - 7 Days PRIMARY CAREMD [Primary Care Provider] - 3-5 Days ALEXIS PEREZ MD [Staff Physician] - 7 Days BRIE RIOS MD [Staff Physician] - 7 Days Forms: AMA Form Prescriptions: Labetalol [Normodyne TAB] 300 mg PO TID #120 tablet Spironolactone [Aldactone] 50 mg PO BID #60 tablet
[2018-06-25] MEDS ORDERED: COZAAR PO SCH (13:00)
[2018-06-25] MEDS: SODIUM CHLORIDE FLUSH SYRINGE 10 ML IV SCH (13:33)
[2018-06-25] MEDS ORDERED: APRESOLINE IV ONE (14:20)
[2018-06-25 15:51] VITALS: BP 164/109
== END 2018-06-25 16:15 | disposition home or self-care (01) | DRG 304 ==
LOC: ED 12:44 → CC1 16:23 → 4A 18:39 → CC1 20:00 → 4A 06-23 17:16
PROVIDERS: ADMIT Internal Medicine; ATTEND Internal Medicine
DX: I16.1 Hypertensive emergency (principal); N17.0 Acute kidney failure with tubular necrosis; E87.1 Hypo-osmolality and hyponatremia; E26.09 Other primary hyperaldosteronism; E87.6 Hypokalemia; N28.1 Cyst of kidney, acquired; R73.9 Hyperglycemia, unspecified; R31.0 Gross hematuria; N18.9 Chronic kidney disease, unspecified; I12.9 Hypertensive chronic kidney disease with stage 1 through stage 4 chronic kidney disease, or unspecified chronic kidney disease; R07.89 Other chest pain; E83.41 Hypermagnesemia; Z91.19 Patient's noncompliance with other medical treatment and regimen; Z82.49 Family history of ischemic heart disease and other diseases of the circulatory system
CPT/HCPCS: 36415; 70450; 71045; 74176; 80048; 80053; 80307; 81001; 82088; 82550; 82570; 82962; 83735; 84100; 84133; 84439; 84443; 84484; 84585; 85025; 93005; 93010; 93306; 96374; 96375; J0360; J1644; J2405; J3480; J7030; J7050; J7512